=== PATIENT | male | born 1970 | race Caucasian/White ===

== ENCOUNTER 2023-02-11 10:35 | Inpatient (IN) | payer OTHER, MEDICAID ==
[~2023-02-11] VITALS: Ht 182.9 cm; Wt 89.8 kg
[2023-02-11] VITALS (9 sets, daily range): BP systolic 95–120; PULSE 71–95; RESP 18–20; TEMP 97.7–99.9; O2SAT 94–97
[2023-02-11] MEDS ORDERED: MEROPENEM 1 GM IVPB PREMIX 50 ML IV ONE (10:45)
[2023-02-11] MEDS ORDERED: NACL 0.9% 1,500 ML IV ONE (10:45)
[2023-02-11] MEDS ORDERED: VANCOMYCIN HCL 1,000 MG in NS 250 ML IV ONE (10:45)
[2023-02-11 11:22] LABS: BASOPHILS % (AUTO) 0.2 % (0.0-2.0); EOSINOPHILS % (AUTO) 0.1 % (0.0-4.0); HEMATOCRIT 32.3 % (36-54); HEMOGLOBIN 10.5 g/dL (14.0-18.0); LYMPHOCYTES # (AUTO) 1.3 K/uL (1.0-5.5); LYMPHOCYTES % (AUTO) 8.4 % (20.5-51.5); MEAN CORPUSCULAR HEMOGLOBIN 25 pg (27-31); MEAN CORPUSCULAR HGB CONC 33 % (32-36); MEAN CORPUSCULAR VOLUME 78 fL (79.0-98.0); MONOCYTES # (AUTO) 1.4 K/uL (0.0-1.0); MONOCYTES % (AUTO) 8.6 % (1.7-9.3); NEUTROPHILS # (AUTO) 13.2 K/uL (1.8-7.7); NEUTROPHILS % (AUTO) 82.7 % (40.0-70.0); PLATELET COUNT (AUTO) 399 K/uL (130-430); RED BLOOD CELL COUNT(AUTO) 4.16 MIL/uL (4.2-6.2); RED CELL DISTRIBUTION WIDTH 20.4 % (9.0-15.0)
[2023-02-11] MEDS ORDERED: VANCOMYCIN HCL 1000 MG/VIAL IV ONE (11:26)
[2023-02-11] MEDS ORDERED: VALP250S3 GT (11:28)
[2023-02-11] MEDS ORDERED: TYLL650 GT ×2 (11:28)
[2023-02-11] MEDS ORDERED: GABA-533 GT (11:28)
[2023-02-11] MEDS ORDERED: BISACODYL PR (11:28)
[2023-02-11] MEDS ORDERED: TRAM50TA2 GT (11:28)
[2023-02-11] MEDS ORDERED: ATROVENT INH ×2 (11:28)
[2023-02-11] MEDS ORDERED: CHLO473M5 PO (11:28)
[2023-02-11] MEDS ORDERED: LOPE2CAP GT (11:28)
[2023-02-11] MEDS ORDERED: [UNRECOGNIZED DRUG - OTHER] GT (11:28)
[2023-02-11] MEDS ORDERED: BACL20TA GT (11:28)
[2023-02-11] MEDS ORDERED: TEMA15CA5 GT (11:28)
[2023-02-11] MEDS ORDERED: ONDA-8 GT (11:28)
[2023-02-11] MEDS ORDERED: LEVA1.2527 NEB (11:28)
[2023-02-11] MEDS ORDERED: LORA-258 GT (11:28)
[2023-02-11] MEDS ORDERED: MAGN400T10 GT (11:28)
[2023-02-11] MEDS ORDERED: MULT9LIQ9 GT (11:28)
[2023-02-11] MEDS ORDERED: RIVA20TA GT (11:28)
[2023-02-11] MEDS ORDERED: GLUCOSE GT (11:28)
[2023-02-11] MEDS ORDERED: AMIN30LI31 GT (11:28)
[2023-02-11] MEDS ORDERED: FAMO40TA7 GT (11:28)
[2023-02-11] MEDS ORDERED: CRAN450T9 GT (11:28)
[2023-02-11] MEDS ORDERED: GABA-529 GT (11:28)
[2023-02-11] MEDS ORDERED: MIDO10TA GT (11:28)
[2023-02-11] MEDS ORDERED: LACT1TAB21 GT (11:28)
[2023-02-11] MEDS ORDERED: LEVA1.2527 INH (11:28)
[2023-02-11] MEDS ORDERED: MODA100T31 GT (11:28)
[2023-02-11 11:35] LABS: ANION GAP 10 (5-15); CALCIUM 8.1 mg/dL (8.4-11.0); CHLORIDE 99 mmol/L (98-107); CREATININE 0.88 mg/dL (0.55-1.30); GFR AFRICAN AMERICAN 117 mL/min (>90); GLUCOSE 117 mg/dL (70-99); UREA NITROGEN, BLOOD 14 mg/dL (8-21)
[2023-02-11 11:42] LABS: ALANINE AMINOTRANSFERASE 16 U/L (12-78); ALBUMIN 2.3 g/dL (3.4-4.8); ASPARTATE AMINOTRANSFERASE 13 U/L (10-37); TOTAL BILIRUBIN 0.3 mg/dL (0.0-1.0)
[2023-02-11 12:38] LABS: BILIRUBIN,URINE NEGATIVE (NEGATIVE); BLOOD, URINE 3+ (NEGATIVE); CLARITY/URINE SL CLOUDY (CLEAR); COLOR,URINE YELLOW (YELLOW); GLUCOSE,URINE NEGATIVE (NEGATIVE); KETONES,URINE NEGATIVE (NEGATIVE); LEUKOCYTE ESTERASE ,URINE 3+ (NEGATIVE); NITRITE, URINE POSITIVE (NEGATIVE); PROTEIN URINE 2+ (NEGATIVE); UROBILINOGEN,URINE 0.2 (0.2-1.0)
[2023-02-11 12:47] LABS: BACTERIA,URINE FEW /HPF (None Seen); RBC,URINE 20-50 /HPF (0-3)
[2023-02-11 12:48] LABS: WBC,URINE 50-80 /HPF (0-3)
[2023-02-11] MEDS ORDERED: MODAFINIL 100 MG TABLET (PROVIGIL) GT PRN (16:15)
[2023-02-11] MEDS ORDERED: ONDANSETRON 4 MG ODT TAB GT PRN (16:15)
[2023-02-11] MEDS ORDERED: LORazepam 1 MG TABLET GT PRN (16:15)
[2023-02-11] MEDS ORDERED: LOPERAMIDE HCL 2 MG CAPSULE GT PRN (16:15)
[2023-02-11] MEDS ORDERED: GLUCOSE GT PRN (16:15)
[2023-02-11] MEDS ORDERED: LORazepam 2 MG/ML VIAL IVP PRN (17:00)
[2023-02-11] MEDS ORDERED: BISACODYL 10 MG/SUPPOSITORY RC PRN (17:30)
[2023-02-11] MEDS ORDERED: levalbuterol HCL 0.63 MG/3 ML VIAL.NEB INH PRN (17:30)
[2023-02-11] MEDS ORDERED: IPRATROPIUM BROM 0.5 MG/2.5 ML VIAL.NEB (ATROVENT) INH PRN (17:30)
[2023-02-11] MEDS ORDERED: LEVALBUTEROL HCL 1.25 MG INH SCH (18:00)
[2023-02-11] MEDS ORDERED: IPRATROPIUM INH SCH (18:00)
[2023-02-11] MEDS: NACL 0.9% 1,000 ML IV SCH (18:06)
[2023-02-11] MEDS: IPRATROPIUM BROM 0.5 MG/2.5 ML VIAL.NEB (ATROVENT) INH SCH (19:56)
[2023-02-11] MEDS: levalbuterol HCL 0.63 MG/3 ML VIAL.NEB INH SCH (19:57)
[2023-02-11] MEDS: TEMAZEPAM 15 MG CAPSULE GT SCH (21:00)
[2023-02-11] MEDS: BACLOFEN 10 MG TABLET GT SCH (21:16)
[2023-02-11] MEDS: GABAPENTIN 300 MG CAPSULE GT SCH (21:16)
[2023-02-11] MEDS: MIDODRINE HCL 5 MG TABLET (PROAMATINE) GT SCH (21:17)
[2023-02-11] MEDS: VALPROIC ACID ORAL SYRUP 250 MG/5 ML UDC GT SCH (21:17)
[2023-02-11] MEDS: CHLORHEXIDINE GLUC 0.12% 15 ML MOUTHWASH UDC MM SCH (21:17)
[2023-02-11] MEDS: levETIRAcetam 500 MG IV PREMIX 100 ML IV SCH (22:30)
[2023-02-11] MEDS: MEROPENEM 1 GM in NS 100 ML IV SCH (22:30)
[2023-02-12] VITALS (17 sets, daily range): BP systolic 84–97; PULSE 52–105; RESP 12–16; TEMP 97–99.4; O2SAT 95–100
[2023-02-12 05:18] LABS: BASOPHILS % (AUTO) 0.3 % (0.0-2.0); EOSINOPHILS # (AUTO) 0.1 K/uL (0.0-0.4); EOSINOPHILS % (AUTO) 0.8 % (0.0-4.0); LYMPHOCYTES # (AUTO) 1.2 K/uL (1.0-5.5); LYMPHOCYTES % (AUTO) 10.4 % (20.5-51.5); MEAN CORPUSCULAR HEMOGLOBIN 25 pg (27-31); MEAN CORPUSCULAR HGB CONC 32 % (32-36); MEAN CORPUSCULAR VOLUME 78 fL (79.0-98.0); MONOCYTES # (AUTO) 1.5 K/uL (0.0-1.0); NEUTROPHILS # (AUTO) 8.5 K/uL (1.8-7.7); NEUTROPHILS % (AUTO) 75.5 % (40.0-70.0); PLATELET COUNT (AUTO) 330 K/uL (130-430); RED BLOOD CELL COUNT(AUTO) 3.59 MIL/uL (4.2-6.2); RED CELL DISTRIBUTION WIDTH 20.3 % (9.0-15.0); WHITE BLOOD COUNT (AUTO) 11.2 K/uL (4.8-10.8)
[2023-02-12 05:40] LABS: CALCIUM 7.7 mg/dL (8.4-11.0); CREATININE 0.74 mg/dL (0.55-1.30); TOTAL BILIRUBIN 0.3 mg/dL (0.0-1.0)
[2023-02-12] MEDS: MEROPENEM 1 GM in NS 100 ML IV SCH (06:19)
[2023-02-12] MEDS: MIDODRINE HCL 5 MG TABLET (PROAMATINE) GT SCH ×3 (06:19→21:37)
[2023-02-12] MEDS: NACL 0.9% 1,000 ML IV SCH (06:21)
[2023-02-12] MEDS: IPRATROPIUM BROM 0.5 MG/2.5 ML VIAL.NEB (ATROVENT) INH SCH ×3 (07:44→19:32)
[2023-02-12] MEDS: levalbuterol HCL 0.63 MG/3 ML VIAL.NEB INH SCH ×3 (07:45→19:32)
[2023-02-12] MEDS ORDERED: NON-FORMULARY MEDICATION (Amino Acids/Protein Hydrolys (Pro-Stat Max Liquid Packet) 30 ML) GT SCH (09:00)
[2023-02-12] MEDS ORDERED: NON-FORMULARY MEDICATION (Cranberry Fruit (Cranberry) 1 TAB) GT SCH (09:00)
[2023-02-12] MEDS: levETIRAcetam 500 MG IV PREMIX 100 ML IV SCH ×2 (09:34→21:57)
[2023-02-12] MEDS: CHLORHEXIDINE GLUC 0.12% 15 ML MOUTHWASH UDC MM SCH ×2 (09:37→21:35)
[2023-02-12] MEDS: VALPROIC ACID ORAL SYRUP 250 MG/5 ML UDC GT SCH ×2 (09:37→21:35)
[2023-02-12] MEDS: RIVAROXABAN 10 MG TABLET GT SCH (09:38)
[2023-02-12] MEDS: MAGNESIUM OXIDE 400 MG TABLET GT SCH (09:38)
[2023-02-12] MEDS: FAMOTIDINE 20 MG TABLET GT SCH (09:38)
[2023-02-12] MEDS: BACLOFEN 10 MG TABLET GT SCH ×2 (09:38→21:36)
[2023-02-12] MEDS: ASCORBIC ACID 500 MG TABLET GT SCH (09:39)
[2023-02-12] MEDS: GABAPENTIN 300 MG CAPSULE GT SCH ×3 (09:39→21:36)
[2023-02-12] MEDS: traMADol HCL HCL 50 MG TABLET (ULTRAM) GT PRN (09:39)
[2023-02-12] MEDS: LACTOBACILLUS RHAMNOSUS GG 1 CAP CAPSULE GT SCH (09:39)
[2023-02-12] MEDS: MULTIVITS,CA,MINERALS/IRON/FA 1 TABLET GT SCH (09:39)
[2023-02-12] MEDS: ACETAMINOPHEN 650 MG/20.3 ML UDC GT PRN (14:56)
[2023-02-12] MEDS: metroNIDAZOLE 250 mg/NS 50 ML IV SCH ×2 (15:11→22:48)
[2023-02-12] MEDS: cefTRIAXone 1 GM IVPB PREMIX 50 ML IV SCH (15:11)
[2023-02-12] MEDS ORDERED: POTASSIUM CHLORIDE 20 MEQ TAB.PRT.SR PO ONE (17:30)
[2023-02-12] MEDS ORDERED: CEFEPIME 2 GM in D5W 100 ML IV SCH (18:00)
[2023-02-12] MEDS ORDERED: NACL 0.9% 1,000 ML IV ONE (19:00)
[2023-02-12] MEDS: KCL 20 mEq in NS 1000 mL 1,000 ML IV SCH (20:53)
[2023-02-12] MEDS: TEMAZEPAM 15 MG CAPSULE GT SCH (21:00)
[2023-02-13] VITALS (36 sets, daily range): BP systolic 81–127; PULSE 42–78; RESP 12–23; TEMP 98.2–100.2; O2SAT 94–100
[2023-02-13] MEDS ORDERED: ALBUMIN HUMAN 25% 100 ML IV ONE ×2 (00:15→00:37)
[2023-02-13] MEDS: IPRATROPIUM BROM 0.5 MG/2.5 ML VIAL.NEB (ATROVENT) INH SCH ×4 (01:10→19:29)
[2023-02-13] MEDS: levalbuterol HCL 0.63 MG/3 ML VIAL.NEB INH SCH ×4 (01:10→19:29)
[2023-02-13 05:22] LABS: BASOPHILS % (AUTO) 0.5 % (0.0-2.0); EOSINOPHILS # (AUTO) 0.3 K/uL (0.0-0.4); EOSINOPHILS % (AUTO) 3.2 % (0.0-4.0); HEMATOCRIT 27.6 % (36-54); HEMOGLOBIN 8.9 g/dL (14.0-18.0); LYMPHOCYTES # (AUTO) 1.3 K/uL (1.0-5.5); LYMPHOCYTES % (AUTO) 14.4 % (20.5-51.5); MEAN CORPUSCULAR HEMOGLOBIN 25 pg (27-31); MEAN CORPUSCULAR HGB CONC 32 % (32-36); MEAN CORPUSCULAR VOLUME 78 fL (79.0-98.0); MONOCYTES # (AUTO) 0.8 K/uL (0.0-1.0); MONOCYTES % (AUTO) 8.6 % (1.7-9.3); NEUTROPHILS # (AUTO) 6.8 K/uL (1.8-7.7); NEUTROPHILS % (AUTO) 73.3 % (40.0-70.0); PLATELET COUNT (AUTO) 365 K/uL (130-430); RED BLOOD CELL COUNT(AUTO) 3.52 MIL/uL (4.2-6.2); RED CELL DISTRIBUTION WIDTH 20.3 % (9.0-15.0); WHITE BLOOD COUNT (AUTO) 9.3 K/uL (4.8-10.8)
[2023-02-13 05:41] LABS: ALBUMIN 2.3 g/dL (3.4-4.8); CALCIUM 7.8 mg/dL (8.4-11.0); CREATININE 0.66 mg/dL (0.55-1.30); TOTAL BILIRUBIN 0.2 mg/dL (0.0-1.0)
[2023-02-13 06:07] LABS: INR 1.2 (0.80-1.20)
[2023-02-13] MEDS: MIDODRINE HCL 5 MG TABLET (PROAMATINE) GT SCH ×3 (06:51→21:06)
[2023-02-13] MEDS: metroNIDAZOLE 250 mg/NS 50 ML IV SCH ×3 (06:51→22:52)
[2023-02-13] MEDS: KCL 20 mEq in NS 1000 mL 1,000 ML IV SCH (06:52)
[2023-02-13] MEDS: ALBUMIN HUMAN 25% 50 ML IV SCH ×3 (08:31→20:32)
[2023-02-13] MEDS: BACLOFEN 10 MG TABLET GT SCH ×2 (08:31→21:06)
[2023-02-13] MEDS: LACTOBACILLUS RHAMNOSUS GG 1 CAP CAPSULE GT SCH (08:32)
[2023-02-13] MEDS: GABAPENTIN 300 MG CAPSULE GT SCH ×3 (08:32→21:06)
[2023-02-13] MEDS: VALPROIC ACID ORAL SYRUP 250 MG/5 ML UDC GT SCH ×2 (08:32→21:06)
[2023-02-13] MEDS: FAMOTIDINE 20 MG TABLET GT SCH (08:32)
[2023-02-13] MEDS: ASCORBIC ACID 500 MG TABLET GT SCH (08:32)
[2023-02-13] MEDS: CHLORHEXIDINE GLUC 0.12% 15 ML MOUTHWASH UDC MM SCH ×2 (08:32→21:06)
[2023-02-13] MEDS: MULTIVITS,CA,MINERALS/IRON/FA 1 TABLET GT SCH (08:33)
[2023-02-13] MEDS: MAGNESIUM OXIDE 400 MG TABLET GT SCH (08:33)
[2023-02-13] MEDS: levETIRAcetam 500 MG IV PREMIX 100 ML IV SCH ×2 (08:36→21:39)
[2023-02-13] MEDS ORDERED: THEOPHYLLINE ANHYDROUS 200 MG CAP.ER.24H PO SCH (09:00)
[2023-02-13] MEDS: POTASSIUM CHLORIDE 10 MEQ in NACL 0.9% 1,000 ML IV SCH ×2 (09:11→14:46)
[2023-02-13] MEDS: RIVAROXABAN 10 MG TABLET GT SCH (10:18)
[2023-02-13] MEDS ORDERED: THEOPHYLLINE ANHYDROUS 80 MG/15 ML UDC PO ONE (10:30)
[2023-02-13] MEDS: traMADol HCL HCL 50 MG TABLET (ULTRAM) GT PRN ×2 (14:45→21:53)
[2023-02-13] MEDS: cefTRIAXone 1 GM IVPB PREMIX 50 ML IV SCH (15:55)
[2023-02-13] MEDS: ACETAMINOPHEN 650 MG/20.3 ML UDC GT PRN ×2 (15:56→18:36)
[2023-02-13 18:15] LABS: BILIRUBIN,URINE NEGATIVE (NEGATIVE); BLOOD, URINE 3+ (NEGATIVE); CLARITY/URINE SL CLOUDY (CLEAR); COLOR,URINE YELLOW (YELLOW); GLUCOSE,URINE NEGATIVE (NEGATIVE); KETONES,URINE NEGATIVE (NEGATIVE); LEUKOCYTE ESTERASE ,URINE 3+ (NEGATIVE); NITRITE, URINE NEGATIVE (NEGATIVE); PROTEIN URINE NEGATIVE (NEGATIVE); UROBILINOGEN,URINE 0.2 (0.2-1.0)
[2023-02-13 18:20] LABS: BACTERIA,URINE FEW /HPF (None Seen); TRICHOMONAS,URINE None Seen /HPF (None Seen); WBC,URINE 20-50 /HPF (0-3); YEAST,URINE None Seen /HPF (None Seen)
[2023-02-13] MEDS: DOPamine PREMIX 250 ML IV PRN (20:34)
[2023-02-13] MEDS ORDERED: THEOPHYLLINE ANHYDROUS 80 MG/15 ML UDC PO SCH (21:00)
[2023-02-13] MEDS: TEMAZEPAM 15 MG CAPSULE GT SCH (21:00)
[2023-02-14] VITALS (36 sets, daily range): BP systolic 73–124; PULSE 18–96; RESP 14–24; TEMP 98.7–101.3; O2SAT 93–100
[2023-02-14] MEDS: levalbuterol HCL 0.63 MG/3 ML VIAL.NEB INH SCH ×4 (01:30→19:00)
[2023-02-14] MEDS: IPRATROPIUM BROM 0.5 MG/2.5 ML VIAL.NEB (ATROVENT) INH SCH ×6 (01:31→23:02)
[2023-02-14] MEDS: DOPamine PREMIX 250 ML IV PRN ×3 (02:26→18:39)
[2023-02-14] MEDS: POTASSIUM CHLORIDE 10 MEQ in NACL 0.9% 1,000 ML IV SCH ×2 (05:03→17:23)
[2023-02-14] MEDS: MIDODRINE HCL 5 MG TABLET (PROAMATINE) GT SCH ×3 (05:03→21:13)
[2023-02-14] MEDS: traMADol HCL HCL 50 MG TABLET (ULTRAM) GT PRN ×4 (05:03→23:40)
[2023-02-14] MEDS: metroNIDAZOLE 250 mg/NS 50 ML IV SCH ×3 (05:03→21:01)
[2023-02-14 05:06] LABS: BASOPHILS % (AUTO) 0.5 % (0.0-2.0); EOSINOPHILS # (AUTO) 0.4 K/uL (0.0-0.4); HEMATOCRIT 33.6 % (36-54); HEMOGLOBIN 10.9 g/dL (14.0-18.0); LYMPHOCYTES # (AUTO) 1.6 K/uL (1.0-5.5); LYMPHOCYTES % (AUTO) 15.3 % (20.5-51.5); MEAN CORPUSCULAR HEMOGLOBIN 25 pg (27-31); MEAN CORPUSCULAR HGB CONC 32 % (32-36); MEAN CORPUSCULAR VOLUME 78 fL (79.0-98.0); MONOCYTES # (AUTO) 0.9 K/uL (0.0-1.0); NEUTROPHILS # (AUTO) 7.3 K/uL (1.8-7.7); NEUTROPHILS % (AUTO) 71.2 % (40.0-70.0); PLATELET COUNT (AUTO) 447 K/uL (130-430); RED BLOOD CELL COUNT(AUTO) 4.32 MIL/uL (4.2-6.2); RED CELL DISTRIBUTION WIDTH 20.1 % (9.0-15.0); WHITE BLOOD COUNT (AUTO) 10.2 K/uL (4.8-10.8)
[2023-02-14 05:16] LABS: INR 1.2 (0.80-1.20); PROTHROMBIN TIME 11.9 SECS (9.5-12.5)
[2023-02-14 05:33] LABS: CALCIUM 8.1 mg/dL (8.4-11.0); CREATININE 0.64 mg/dL (0.55-1.30)
[2023-02-14 05:45] LABS: ALBUMIN 2.7 g/dL (3.4-4.8); THYROID STIMULATING HORMONE 0.42 uIu/mL (0.34-4.82); TOTAL BILIRUBIN 0.3 mg/dL (0.0-1.0)
[2023-02-14] MEDS: LACTOBACILLUS RHAMNOSUS GG 1 CAP CAPSULE GT SCH (09:39)
[2023-02-14] MEDS: FAMOTIDINE 20 MG TABLET GT SCH (09:39)
[2023-02-14] MEDS: BACLOFEN 10 MG TABLET GT SCH ×2 (09:39→21:14)
[2023-02-14] MEDS: ASCORBIC ACID 500 MG TABLET GT SCH (09:39)
[2023-02-14] MEDS: VALPROIC ACID ORAL SYRUP 250 MG/5 ML UDC GT SCH ×2 (09:40→21:14)
[2023-02-14] MEDS: MAGNESIUM OXIDE 400 MG TABLET GT SCH (09:40)
[2023-02-14] MEDS: GABAPENTIN 300 MG CAPSULE GT SCH ×3 (09:40→21:11)
[2023-02-14] MEDS: CHLORHEXIDINE GLUC 0.12% 15 ML MOUTHWASH UDC MM SCH ×2 (09:41→21:11)
[2023-02-14] MEDS: RIVAROXABAN 10 MG TABLET GT SCH (09:42)
[2023-02-14] MEDS: MULTIVITS,CA,MINERALS/IRON/FA 1 TABLET GT SCH (09:44)
[2023-02-14] MEDS: ACETAMINOPHEN 650 MG/20.3 ML UDC GT PRN ×3 (09:45→23:40)
[2023-02-14] MEDS: levETIRAcetam 500 MG IV PREMIX 100 ML IV SCH ×2 (09:47→21:01)
[2023-02-14] MEDS: THEOPHYLLINE ANHYDROUS 80 MG/15 ML UDC PO SCH ×3 (10:24→21:15)
[2023-02-14] MEDS: ALBUTEROL SULFATE 0.083% 2.5 MG/3 ML VIAL.NEB INH SCH ×3 (15:34→23:02)
[2023-02-14] MEDS: ACETYLCYSTEINE 20% 4 ML VIAL (RT) INH SCH ×3 (15:35→23:02)
[2023-02-14] MEDS ORDERED: AMIKACIN SULFATE 1,000 MG in D5W 100 ML IV SCH (18:00)
[2023-02-14] MEDS: TEMAZEPAM 15 MG CAPSULE GT SCH (21:11)
[2023-02-15] VITALS (33 sets, daily range): BP systolic 89–159; PULSE 48–101; RESP 14–30; TEMP 96.9–98.3; O2SAT 91–97
[2023-02-15] MEDS: levalbuterol HCL 0.63 MG/3 ML VIAL.NEB INH SCH ×5 (01:00→19:00)
[2023-02-15] MEDS: DOPamine PREMIX 250 ML IV PRN ×3 (02:02→13:32)
[2023-02-15] MEDS: IPRATROPIUM BROM 0.5 MG/2.5 ML VIAL.NEB (ATROVENT) INH SCH ×6 (03:16→23:05)
[2023-02-15] MEDS: ALBUTEROL SULFATE 0.083% 2.5 MG/3 ML VIAL.NEB INH SCH ×6 (03:16→23:05)
[2023-02-15] MEDS: ACETYLCYSTEINE 20% 4 ML VIAL (RT) INH SCH ×7 (03:16→23:05)
[2023-02-15] MEDS: MIDODRINE HCL 5 MG TABLET (PROAMATINE) GT SCH ×3 (04:30→22:33)
[2023-02-15] MEDS: metroNIDAZOLE 250 mg/NS 50 ML IV SCH (04:31)
[2023-02-15 06:08] LABS: BASOPHILS # (AUTO) 0.1 K/uL (0.0-0.2); BASOPHILS % (AUTO) 0.6 % (0.0-2.0); EOSINOPHILS # (AUTO) 0.7 K/uL (0.0-0.4); EOSINOPHILS % (AUTO) 7.2 % (0.0-4.0); HEMATOCRIT 31.4 % (36-54); HEMOGLOBIN 10.1 g/dL (14.0-18.0); LYMPHOCYTES # (AUTO) 1.2 K/uL (1.0-5.5); LYMPHOCYTES % (AUTO) 12.4 % (20.5-51.5); MEAN CORPUSCULAR HEMOGLOBIN 25 pg (27-31); MEAN CORPUSCULAR HGB CONC 32 % (32-36); MEAN CORPUSCULAR VOLUME 78 fL (79.0-98.0); MONOCYTES # (AUTO) 0.8 K/uL (0.0-1.0); NEUTROPHILS # (AUTO) 6.8 K/uL (1.8-7.7); NEUTROPHILS % (AUTO) 71.8 % (40.0-70.0); PLATELET COUNT (AUTO) 422 K/uL (130-430); RED BLOOD CELL COUNT(AUTO) 4.03 MIL/uL (4.2-6.2); RED CELL DISTRIBUTION WIDTH 20.2 % (9.0-15.0); WHITE BLOOD COUNT (AUTO) 9.5 K/uL (4.8-10.8)
[2023-02-15 06:19] LABS: ALBUMIN 2.5 g/dL (3.4-4.8); CALCIUM 8.2 mg/dL (8.4-11.0); CREATININE 0.6 mg/dL (0.55-1.30); TOTAL BILIRUBIN 0.5 mg/dL (0.0-1.0)
[2023-02-15] MEDS: traMADol HCL HCL 50 MG TABLET (ULTRAM) GT PRN ×2 (06:57→20:11)
[2023-02-15] MEDS: levETIRAcetam 500 MG IV PREMIX 100 ML IV SCH ×2 (09:30→21:50)
[2023-02-15] MEDS: CHLORHEXIDINE GLUC 0.12% 15 ML MOUTHWASH UDC MM SCH ×2 (09:30→21:51)
[2023-02-15] MEDS: MAGNESIUM OXIDE 400 MG TABLET GT SCH (09:31)
[2023-02-15] MEDS: RIVAROXABAN 10 MG TABLET GT SCH (09:31)
[2023-02-15] MEDS: LACTOBACILLUS RHAMNOSUS GG 1 CAP CAPSULE GT SCH (09:35)
[2023-02-15] MEDS: VALPROIC ACID ORAL SYRUP 250 MG/5 ML UDC GT SCH ×2 (09:35→21:50)
[2023-02-15] MEDS: BACLOFEN 10 MG TABLET GT SCH ×2 (09:35→21:49)
[2023-02-15] MEDS: GABAPENTIN 300 MG CAPSULE GT SCH ×3 (09:36→21:50)
[2023-02-15] MEDS: ASCORBIC ACID 500 MG TABLET GT SCH (09:36)
[2023-02-15] MEDS: FAMOTIDINE 20 MG TABLET GT SCH ×2 (09:40→11:45)
[2023-02-15] MEDS: MULTIVITS,CA,MINERALS/IRON/FA 1 TABLET GT SCH (09:42)
[2023-02-15] MEDS: POTASSIUM CHLORIDE 10 MEQ in NACL 0.9% 1,000 ML IV SCH ×2 (10:12→11:09)
[2023-02-15] MEDS: THEOPHYLLINE ANHYDROUS 80 MG/15 ML UDC PO SCH ×3 (11:47→21:51)
[2023-02-15] MEDS: CEFIDEROCOL SULFATE TOSYLATE 1 GM in NS 100 ML IV SCH ×2 (14:16→22:33)
[2023-02-15] MEDS: TEMAZEPAM 15 MG CAPSULE GT SCH (21:50)
[2023-02-16] VITALS (29 sets, daily range): BP systolic 91–139; PULSE 56–88; RESP 12–33; TEMP 97.3–98.3; O2SAT 88–100
[2023-02-16] MEDS: levalbuterol HCL 0.63 MG/3 ML VIAL.NEB INH SCH ×3 (01:00→13:00)
[2023-02-16] MEDS: IPRATROPIUM BROM 0.5 MG/2.5 ML VIAL.NEB (ATROVENT) INH SCH ×6 (02:45→22:33)
[2023-02-16] MEDS: ALBUTEROL SULFATE 0.083% 2.5 MG/3 ML VIAL.NEB INH SCH ×6 (02:45→22:33)
[2023-02-16] MEDS: ACETYLCYSTEINE 20% 4 ML VIAL (RT) INH SCH ×6 (02:46→22:33)
[2023-02-16 05:35] LABS: BASOPHILS % (AUTO) 0.4 % (0.0-2.0); EOSINOPHILS # (AUTO) 0.9 K/uL (0.0-0.4); EOSINOPHILS % (AUTO) 7.9 % (0.0-4.0); HEMATOCRIT 29.6 % (36-54); HEMOGLOBIN 9.2 g/dL (14.0-18.0); LYMPHOCYTES # (AUTO) 1.6 K/uL (1.0-5.5); LYMPHOCYTES % (AUTO) 13.4 % (20.5-51.5); MEAN CORPUSCULAR HEMOGLOBIN 24 pg (27-31); MEAN CORPUSCULAR HGB CONC 31 % (32-36); MEAN CORPUSCULAR VOLUME 78 fL (79.0-98.0); MONOCYTES # (AUTO) 0.6 K/uL (0.0-1.0); MONOCYTES % (AUTO) 4.9 % (1.7-9.3); NEUTROPHILS # (AUTO) 8.6 K/uL (1.8-7.7); NEUTROPHILS % (AUTO) 73.4 % (40.0-70.0); PLATELET COUNT (AUTO) 420 K/uL (130-430); RED BLOOD CELL COUNT(AUTO) 3.81 MIL/uL (4.2-6.2); RED CELL DISTRIBUTION WIDTH 20.3 % (9.0-15.0); WHITE BLOOD COUNT (AUTO) 11.7 K/uL (4.8-10.8)
[2023-02-16 05:50] LABS: CALCIUM 7.7 mg/dL (8.4-11.0); CREATININE 0.69 mg/dL (0.55-1.30)
[2023-02-16] MEDS: MIDODRINE HCL 5 MG TABLET (PROAMATINE) GT SCH ×3 (06:37→21:30)
[2023-02-16] MEDS: CEFIDEROCOL SULFATE TOSYLATE 1 GM in NS 100 ML IV SCH ×3 (06:38→21:31)
[2023-02-16] MEDS: LACTOBACILLUS RHAMNOSUS GG 1 CAP CAPSULE GT SCH (08:20)
[2023-02-16] MEDS: FAMOTIDINE 20 MG TABLET GT SCH (08:20)
[2023-02-16] MEDS: MULTIVITS,CA,MINERALS/IRON/FA 1 TABLET GT SCH (08:20)
[2023-02-16] MEDS: BACLOFEN 10 MG TABLET GT SCH ×2 (08:20→21:22)
[2023-02-16] MEDS: MAGNESIUM OXIDE 400 MG TABLET GT SCH (08:21)
[2023-02-16] MEDS: GABAPENTIN 300 MG CAPSULE GT SCH ×3 (08:21→21:23)
[2023-02-16] MEDS: ASCORBIC ACID 500 MG TABLET GT SCH (08:21)
[2023-02-16] MEDS: CHLORHEXIDINE GLUC 0.12% 15 ML MOUTHWASH UDC MM SCH ×2 (08:23→21:23)
[2023-02-16] MEDS: VALPROIC ACID ORAL SYRUP 250 MG/5 ML UDC GT SCH ×2 (08:24→21:22)
[2023-02-16] MEDS: levETIRAcetam 500 MG IV PREMIX 100 ML IV SCH ×2 (08:24→21:23)
[2023-02-16] MEDS: RIVAROXABAN 10 MG TABLET GT SCH (08:26)
[2023-02-16] MEDS: THEOPHYLLINE ANHYDROUS 80 MG/15 ML UDC PO SCH ×3 (08:36→21:24)
[2023-02-16] MEDS: POTASSIUM CHLORIDE 10 MEQ in NACL 0.9% 1,000 ML IV SCH ×2 (08:41→21:22)
[2023-02-16] MEDS: DOPamine PREMIX 250 ML IV PRN (09:40)
[2023-02-16] MEDS: TEMAZEPAM 15 MG CAPSULE GT SCH (21:23)
[2023-02-17] VITALS (34 sets, daily range): BP systolic 100–142; PULSE 46–89; RESP 13–36; TEMP 96.6–98.1; O2SAT 18–100
[2023-02-17] MEDS: ACETYLCYSTEINE 20% 4 ML VIAL (RT) INH SCH ×6 (03:52→23:17)
[2023-02-17] MEDS: ALBUTEROL SULFATE 0.083% 2.5 MG/3 ML VIAL.NEB INH SCH ×6 (03:52→23:16)
[2023-02-17] MEDS: IPRATROPIUM BROM 0.5 MG/2.5 ML VIAL.NEB (ATROVENT) INH SCH ×6 (03:52→23:17)
[2023-02-17] MEDS: MIDODRINE HCL 5 MG TABLET (PROAMATINE) GT SCH ×3 (05:57→21:52)
[2023-02-17] MEDS: POTASSIUM CHLORIDE 10 MEQ in NACL 0.9% 1,000 ML IV SCH ×2 (05:57→15:30)
[2023-02-17] MEDS: CEFIDEROCOL SULFATE TOSYLATE 1 GM in NS 100 ML IV SCH ×3 (05:58→21:52)
[2023-02-17] MEDS: levalbuterol HCL 0.63 MG/3 ML VIAL.NEB INH SCH ×3 (07:00→20:12)
[2023-02-17] MEDS: DOPamine PREMIX 250 ML IV PRN (08:14)
[2023-02-17] MEDS: CHLORHEXIDINE GLUC 0.12% 15 ML MOUTHWASH UDC MM SCH ×2 (09:28→21:51)
[2023-02-17] MEDS ORDERED: LIDOCAINE 2% JELLY UROJECT 10 ML MM ONE (09:29)
[2023-02-17] MEDS ORDERED: LIDOCAINE 2%, 20 ML MDV ONE (09:29)
[2023-02-17] MEDS: levETIRAcetam 500 MG IV PREMIX 100 ML IV SCH ×2 (09:29→21:51)
[2023-02-17] MEDS ORDERED: BENZOCAINE 20% 0.5mL UD SPRAY MM ONE (09:29)
[2023-02-17] MEDS ORDERED: LIDOCAINE MPF 2% 20 MG/1 ML, 5 ML VIAL INH ONE ×2 (09:30→10:36)
[2023-02-17] MEDS ORDERED: fentaNYL CITRATE/PF 100 MCG/2 ML AMP ONE (09:30)
[2023-02-17] MEDS ORDERED: MIDAZOLAM HCL 5 MG/5 ML VIAL ONE (09:30)
[2023-02-17] MEDS: MULTIVITS,CA,MINERALS/IRON/FA 1 TABLET GT SCH (11:00)
[2023-02-17] MEDS: GABAPENTIN 300 MG CAPSULE GT SCH ×3 (11:00→21:51)
[2023-02-17] MEDS: MAGNESIUM OXIDE 400 MG TABLET GT SCH (11:00)
[2023-02-17] MEDS: LACTOBACILLUS RHAMNOSUS GG 1 CAP CAPSULE GT SCH (11:00)
[2023-02-17] MEDS: ASCORBIC ACID 500 MG TABLET GT SCH (11:00)
[2023-02-17] MEDS: BACLOFEN 10 MG TABLET GT SCH ×2 (11:00→21:50)
[2023-02-17] MEDS: RIVAROXABAN 10 MG TABLET GT SCH (11:01)
[2023-02-17] MEDS: THEOPHYLLINE ANHYDROUS 80 MG/15 ML UDC PO SCH ×3 (11:02→21:51)
[2023-02-17] MEDS: VALPROIC ACID ORAL SYRUP 250 MG/5 ML UDC GT SCH ×2 (11:02→21:50)
[2023-02-17] MEDS: FAMOTIDINE 20 MG TABLET GT SCH (13:52)
[2023-02-17] MEDS: TEMAZEPAM 15 MG CAPSULE GT SCH (21:51)
[2023-02-18] VITALS (33 sets, daily range): BP systolic 110–156; PULSE 50–139; RESP 13–59; TEMP 97.6–99.8; O2SAT 95–100
[2023-02-18] MEDS: levalbuterol HCL 0.63 MG/3 ML VIAL.NEB INH SCH ×3 (01:00→13:00)
[2023-02-18] MEDS: IPRATROPIUM BROM 0.5 MG/2.5 ML VIAL.NEB (ATROVENT) INH SCH ×6 (03:47→23:19)
[2023-02-18] MEDS: ALBUTEROL SULFATE 0.083% 2.5 MG/3 ML VIAL.NEB INH SCH ×6 (03:47→23:19)
[2023-02-18] MEDS: ACETYLCYSTEINE 20% 4 ML VIAL (RT) INH SCH ×6 (03:48→23:20)
[2023-02-18] MEDS ORDERED: ATROPINE SULFATE 1 MG/10 ML SYRINGE IVP ONE ×2 (05:45→05:46)
[2023-02-18] MEDS: POTASSIUM CHLORIDE 10 MEQ in NACL 0.9% 1,000 ML IV SCH ×3 (06:22→22:18)
[2023-02-18] MEDS: CEFIDEROCOL SULFATE TOSYLATE 1 GM in NS 100 ML IV SCH ×3 (06:23→22:17)
[2023-02-18] MEDS: MIDODRINE HCL 5 MG TABLET (PROAMATINE) GT SCH ×3 (06:24→21:09)
[2023-02-18 06:30] LABS: BASOPHILS % (AUTO) 0.3 % (0.0-2.0); EOSINOPHILS # (AUTO) 0.9 K/uL (0.0-0.4); EOSINOPHILS % (AUTO) 8.1 % (0.0-4.0); HEMATOCRIT 37.6 % (36-54); HEMOGLOBIN 12.2 g/dL (14.0-18.0); LYMPHOCYTES # (AUTO) 1.5 K/uL (1.0-5.5); MEAN CORPUSCULAR HEMOGLOBIN 25 pg (27-31); MEAN CORPUSCULAR HGB CONC 32 % (32-36); MEAN CORPUSCULAR VOLUME 78 fL (79.0-98.0); MONOCYTES # (AUTO) 0.6 K/uL (0.0-1.0); MONOCYTES % (AUTO) 5.3 % (1.7-9.3); NEUTROPHILS # (AUTO) 7.6 K/uL (1.8-7.7); NEUTROPHILS % (AUTO) 72.3 % (40.0-70.0); PLATELET COUNT (AUTO) 427 K/uL (130-430); RED BLOOD CELL COUNT(AUTO) 4.82 MIL/uL (4.2-6.2); RED CELL DISTRIBUTION WIDTH 20.5 % (9.0-15.0); WHITE BLOOD COUNT (AUTO) 10.6 K/uL (4.8-10.8)
[2023-02-18 06:53] LABS: CALCIUM 8.4 mg/dL (8.4-11.0); CREATININE 0.6 mg/dL (0.55-1.30)
[2023-02-18] MEDS: DOPamine PREMIX 250 ML IV PRN ×4 (08:30→21:38)
[2023-02-18] MEDS: levETIRAcetam 500 MG IV PREMIX 100 ML IV SCH ×2 (08:33→21:08)
[2023-02-18] MEDS: BACLOFEN 10 MG TABLET GT SCH ×2 (08:37→21:07)
[2023-02-18] MEDS: LACTOBACILLUS RHAMNOSUS GG 1 CAP CAPSULE GT SCH (08:38)
[2023-02-18] MEDS: VALPROIC ACID ORAL SYRUP 250 MG/5 ML UDC GT SCH ×2 (08:38→21:07)
[2023-02-18] MEDS: MAGNESIUM OXIDE 400 MG TABLET GT SCH (08:39)
[2023-02-18] MEDS: GABAPENTIN 300 MG CAPSULE GT SCH ×3 (08:39→21:07)
[2023-02-18] MEDS: RIVAROXABAN 10 MG TABLET GT SCH (08:40)
[2023-02-18] MEDS: CHLORHEXIDINE GLUC 0.12% 15 ML MOUTHWASH UDC MM SCH ×2 (08:42→21:08)
[2023-02-18] MEDS: THEOPHYLLINE ANHYDROUS 80 MG/15 ML UDC PO SCH ×3 (08:43→21:09)
[2023-02-18] MEDS: ASCORBIC ACID 500 MG TABLET GT SCH (08:43)
[2023-02-18] MEDS: MULTIVITS,CA,MINERALS/IRON/FA 1 TABLET GT SCH (08:43)
[2023-02-18] MEDS: FAMOTIDINE 20 MG TABLET GT SCH (09:44)
[2023-02-18] MEDS ORDERED: ATROPINE SULFATE 0.4 MG/ML VIAL IVP ONE (09:45)
[2023-02-18] MEDS: ATROPINE SULFATE 0.4 MG/ML VIAL IVP SCH ×2 (12:52→18:35)
[2023-02-18] MEDS: traMADol HCL HCL 50 MG TABLET (ULTRAM) GT PRN (13:12)
[2023-02-18 17:03] LABS: ALBUMIN 2.2 g/dL (3.4-4.8); CALCIUM 8.3 mg/dL (8.4-11.0); CREATININE 0.65 mg/dL (0.55-1.30); TOTAL BILIRUBIN 0.4 mg/dL (0.0-1.0)
[2023-02-18] MEDS: TEMAZEPAM 15 MG CAPSULE GT SCH (21:08)
[2023-02-19] VITALS (38 sets, daily range): BP systolic 84–177; PULSE 49–132; RESP 12–40; TEMP 97.7–99.6; O2SAT 96–100
[2023-02-19] MEDS: ATROPINE SULFATE 0.4 MG/ML VIAL IVP SCH ×4 (00:50→18:40)
[2023-02-19] MEDS: DOPamine PREMIX 250 ML IV PRN ×4 (02:33→20:08)
[2023-02-19] MEDS: IPRATROPIUM BROM 0.5 MG/2.5 ML VIAL.NEB (ATROVENT) INH SCH ×6 (03:18→23:42)
[2023-02-19] MEDS: ALBUTEROL SULFATE 0.083% 2.5 MG/3 ML VIAL.NEB INH SCH ×6 (03:18→23:41)
[2023-02-19] MEDS: ACETYLCYSTEINE 20% 4 ML VIAL (RT) INH SCH ×6 (03:19→23:42)
[2023-02-19 05:58] LABS: BASOPHILS % (AUTO) 0.5 % (0.0-2.0); EOSINOPHILS # (AUTO) 0.7 K/uL (0.0-0.4); EOSINOPHILS % (AUTO) 7.6 % (0.0-4.0); HEMATOCRIT 28.5 % (36-54); HEMOGLOBIN 9.3 g/dL (14.0-18.0); LYMPHOCYTES # (AUTO) 1.7 K/uL (1.0-5.5); LYMPHOCYTES % (AUTO) 18.1 % (20.5-51.5); MEAN CORPUSCULAR HEMOGLOBIN 25 pg (27-31); MEAN CORPUSCULAR HGB CONC 33 % (32-36); MEAN CORPUSCULAR VOLUME 78 fL (79.0-98.0); MONOCYTES # (AUTO) 0.6 K/uL (0.0-1.0); MONOCYTES % (AUTO) 6.5 % (1.7-9.3); NEUTROPHILS # (AUTO) 6.3 K/uL (1.8-7.7); NEUTROPHILS % (AUTO) 67.3 % (40.0-70.0); PLATELET COUNT (AUTO) 449 K/uL (130-430); RED BLOOD CELL COUNT(AUTO) 3.67 MIL/uL (4.2-6.2); RED CELL DISTRIBUTION WIDTH 20.4 % (9.0-15.0); WHITE BLOOD COUNT (AUTO) 9.4 K/uL (4.8-10.8)
[2023-02-19] MEDS: MIDODRINE HCL 5 MG TABLET (PROAMATINE) GT SCH ×2 (06:22→12:48)
[2023-02-19] MEDS: CEFIDEROCOL SULFATE TOSYLATE 1 GM in NS 100 ML IV SCH ×3 (06:23→22:40)
[2023-02-19 06:44] LABS: CALCIUM 7.8 mg/dL (8.4-11.0); CREATININE 0.6 mg/dL (0.55-1.30); THYROID STIMULATING HORMONE 1.62 uIu/mL (0.34-4.82); TOTAL BILIRUBIN 0.3 mg/dL (0.0-1.0)
[2023-02-19] MEDS: levETIRAcetam 500 MG IV PREMIX 100 ML IV SCH ×2 (09:47→20:17)
[2023-02-19] MEDS: VALPROIC ACID ORAL SYRUP 250 MG/5 ML UDC GT SCH ×2 (09:49→20:16)
[2023-02-19] MEDS: CHLORHEXIDINE GLUC 0.12% 15 ML MOUTHWASH UDC MM SCH ×2 (09:50→20:17)
[2023-02-19] MEDS: MAGNESIUM OXIDE 400 MG TABLET GT SCH (09:51)
[2023-02-19] MEDS: ASCORBIC ACID 500 MG TABLET GT SCH (09:55)
[2023-02-19] MEDS: FLUDROCORTISONE ACETATE 0.1 MG TABLET( FLORINEF) PO SCH (09:58)
[2023-02-19] MEDS: RIVAROXABAN 10 MG TABLET GT SCH (09:58)
[2023-02-19] MEDS: BACLOFEN 10 MG TABLET GT SCH ×2 (10:00→20:15)
[2023-02-19] MEDS: GABAPENTIN 300 MG CAPSULE GT SCH ×3 (10:00→20:16)
[2023-02-19] MEDS: LACTOBACILLUS RHAMNOSUS GG 1 CAP CAPSULE GT SCH (10:00)
[2023-02-19] MEDS: MULTIVITS,CA,MINERALS/IRON/FA 1 TABLET GT SCH (10:00)
[2023-02-19] MEDS: FAMOTIDINE 20 MG TABLET GT SCH (10:00)
[2023-02-19] MEDS: THEOPHYLLINE ANHYDROUS 80 MG/15 ML UDC PO SCH ×3 (10:02→20:17)
[2023-02-19] MEDS: POTASSIUM CHLORIDE 10 MEQ in NACL 0.9% 1,000 ML IV SCH ×2 (10:03→22:40)
[2023-02-19] MEDS: TEMAZEPAM 15 MG CAPSULE GT SCH (20:16)
[2023-02-20] VITALS (34 sets, daily range): BP systolic 76–132; PULSE 58–99; RESP 12–35; TEMP 96.3–98.7; O2SAT 97–100
[2023-02-20] MEDS: DOPamine PREMIX 250 ML IV PRN ×4 (00:02→19:37)
[2023-02-20] MEDS: ATROPINE SULFATE 0.4 MG/ML VIAL IVP SCH ×4 (00:50→18:14)
[2023-02-20] MEDS: IPRATROPIUM BROM 0.5 MG/2.5 ML VIAL.NEB (ATROVENT) INH SCH ×6 (03:23→23:40)
[2023-02-20] MEDS: ACETYLCYSTEINE 20% 4 ML VIAL (RT) INH SCH ×6 (03:23→23:40)
[2023-02-20] MEDS: ALBUTEROL SULFATE 0.083% 2.5 MG/3 ML VIAL.NEB INH SCH ×6 (03:23→23:40)
[2023-02-20 05:31] LABS: BASOPHILS # (AUTO) 0.1 K/uL (0.0-0.2); BASOPHILS % (AUTO) 0.7 % (0.0-2.0); EOSINOPHILS # (AUTO) 0.8 K/uL (0.0-0.4); HEMATOCRIT 31.2 % (36-54); HEMOGLOBIN 10.2 g/dL (14.0-18.0); LYMPHOCYTES # (AUTO) 1.6 K/uL (1.0-5.5); LYMPHOCYTES % (AUTO) 20.1 % (20.5-51.5); MEAN CORPUSCULAR HEMOGLOBIN 25 pg (27-31); MEAN CORPUSCULAR HGB CONC 33 % (32-36); MEAN CORPUSCULAR VOLUME 77 fL (79.0-98.0); MONOCYTES # (AUTO) 0.6 K/uL (0.0-1.0); MONOCYTES % (AUTO) 7.4 % (1.7-9.3); NEUTROPHILS % (AUTO) 61.8 % (40.0-70.0); PLATELET COUNT (AUTO) 426 K/uL (130-430); RED BLOOD CELL COUNT(AUTO) 4.07 MIL/uL (4.2-6.2); WHITE BLOOD COUNT (AUTO) 8.2 K/uL (4.8-10.8)
[2023-02-20 06:00] LABS: ALBUMIN 2.2 g/dL (3.4-4.8); CALCIUM 8.4 mg/dL (8.4-11.0); CREATININE 0.63 mg/dL (0.55-1.30); TOTAL BILIRUBIN 0.3 mg/dL (0.0-1.0)
[2023-02-20] MEDS: CEFIDEROCOL SULFATE TOSYLATE 1 GM in NS 100 ML IV SCH ×3 (06:12→22:09)
[2023-02-20] MEDS: levETIRAcetam 500 MG IV PREMIX 100 ML IV SCH ×2 (08:18→20:29)
[2023-02-20] MEDS: CHLORHEXIDINE GLUC 0.12% 15 ML MOUTHWASH UDC MM SCH ×2 (08:18→20:30)
[2023-02-20] MEDS: VALPROIC ACID ORAL SYRUP 250 MG/5 ML UDC GT SCH ×2 (08:19→20:29)
[2023-02-20] MEDS: RIVAROXABAN 10 MG TABLET GT SCH (08:20)
[2023-02-20] MEDS: THEOPHYLLINE ANHYDROUS 80 MG/15 ML UDC PO SCH ×3 (08:21→20:30)
[2023-02-20] MEDS: ASCORBIC ACID 500 MG TABLET GT SCH (08:22)
[2023-02-20] MEDS: LACTOBACILLUS RHAMNOSUS GG 1 CAP CAPSULE GT SCH (08:22)
[2023-02-20] MEDS: FLUDROCORTISONE ACETATE 0.1 MG TABLET( FLORINEF) PO SCH (08:22)
[2023-02-20] MEDS: MULTIVITS,CA,MINERALS/IRON/FA 1 TABLET GT SCH (08:22)
[2023-02-20] MEDS: MAGNESIUM OXIDE 400 MG TABLET GT SCH (08:23)
[2023-02-20] MEDS: GABAPENTIN 300 MG CAPSULE GT SCH ×3 (08:23→20:29)
[2023-02-20] MEDS: BACLOFEN 10 MG TABLET GT SCH ×2 (08:23→20:29)
[2023-02-20] MEDS: FAMOTIDINE 20 MG TABLET GT SCH (08:23)
[2023-02-20] MEDS: POTASSIUM CHLORIDE 10 MEQ in NACL 0.9% 1,000 ML IV SCH (14:49)
[2023-02-20] MEDS: TEMAZEPAM 15 MG CAPSULE GT SCH (20:29)
[2023-02-20] MEDS: traMADol HCL HCL 50 MG TABLET (ULTRAM) GT PRN (21:14)
[2023-02-21] VITALS (34 sets, daily range): BP systolic 56–132; PULSE 47–89; RESP 13–36; TEMP 97.5–99.1; O2SAT 92–100
[2023-02-21] MEDS: ATROPINE SULFATE 0.4 MG/ML VIAL IVP SCH ×4 (00:56→21:01)
[2023-02-21] MEDS: DOPamine PREMIX 250 ML IV PRN ×4 (02:01→23:17)
[2023-02-21] MEDS: IPRATROPIUM BROM 0.5 MG/2.5 ML VIAL.NEB (ATROVENT) INH SCH ×5 (03:43→19:44)
[2023-02-21] MEDS: ACETYLCYSTEINE 20% 4 ML VIAL (RT) INH SCH ×5 (03:43→19:58)
[2023-02-21] MEDS: ALBUTEROL SULFATE 0.083% 2.5 MG/3 ML VIAL.NEB INH SCH ×5 (03:43→19:40)
[2023-02-21 05:29] LABS: BASOPHILS % (AUTO) 0.5 % (0.0-2.0); EOSINOPHILS # (AUTO) 0.6 K/uL (0.0-0.4); EOSINOPHILS % (AUTO) 8.5 % (0.0-4.0); HEMATOCRIT 28.3 % (36-54); HEMOGLOBIN 9.2 g/dL (14.0-18.0); LYMPHOCYTES # (AUTO) 1.5 K/uL (1.0-5.5); LYMPHOCYTES % (AUTO) 20.7 % (20.5-51.5); MEAN CORPUSCULAR HEMOGLOBIN 25 pg (27-31); MEAN CORPUSCULAR HGB CONC 32 % (32-36); MEAN CORPUSCULAR VOLUME 77 fL (79.0-98.0); MONOCYTES # (AUTO) 0.5 K/uL (0.0-1.0); MONOCYTES % (AUTO) 6.5 % (1.7-9.3); NEUTROPHILS # (AUTO) 4.8 K/uL (1.8-7.7); NEUTROPHILS % (AUTO) 63.8 % (40.0-70.0); PLATELET COUNT (AUTO) 315 K/uL (130-430); RED BLOOD CELL COUNT(AUTO) 3.69 MIL/uL (4.2-6.2); RED CELL DISTRIBUTION WIDTH 20.9 % (9.0-15.0); WHITE BLOOD COUNT (AUTO) 7.5 K/uL (4.8-10.8)
[2023-02-21 05:51] LABS: ALBUMIN 2.1 g/dL (3.4-4.8); CREATININE 0.56 mg/dL (0.55-1.30); TOTAL BILIRUBIN 0.3 mg/dL (0.0-1.0)
[2023-02-21] MEDS: CEFIDEROCOL SULFATE TOSYLATE 1 GM in NS 100 ML IV SCH ×3 (06:07→20:59)
[2023-02-21] MEDS: POTASSIUM CHLORIDE 10 MEQ in NACL 0.9% 1,000 ML IV SCH ×2 (06:08→10:25)
[2023-02-21] MEDS: RIVAROXABAN 10 MG TABLET GT SCH (09:00)
[2023-02-21] MEDS: FAMOTIDINE 20 MG TABLET GT SCH (09:26)
[2023-02-21] MEDS: CHLORHEXIDINE GLUC 0.12% 15 ML MOUTHWASH UDC MM SCH ×2 (09:26→21:00)
[2023-02-21] MEDS: BACLOFEN 10 MG TABLET GT SCH ×2 (09:27→21:02)
[2023-02-21] MEDS: VALPROIC ACID ORAL SYRUP 250 MG/5 ML UDC GT SCH ×2 (09:27→21:01)
[2023-02-21] MEDS: MULTIVITS,CA,MINERALS/IRON/FA 1 TABLET GT SCH (09:27)
[2023-02-21] MEDS: FLUDROCORTISONE ACETATE 0.1 MG TABLET( FLORINEF) PO SCH (09:27)
[2023-02-21] MEDS: ASCORBIC ACID 500 MG TABLET GT SCH (09:28)
[2023-02-21] MEDS: GABAPENTIN 300 MG CAPSULE GT SCH ×3 (09:28→21:02)
[2023-02-21] MEDS: MAGNESIUM OXIDE 400 MG TABLET GT SCH (09:28)
[2023-02-21] MEDS: LACTOBACILLUS RHAMNOSUS GG 1 CAP CAPSULE GT SCH (09:28)
[2023-02-21] MEDS: THEOPHYLLINE ANHYDROUS 80 MG/15 ML UDC PO SCH ×3 (09:29→21:00)
[2023-02-21] MEDS: levETIRAcetam 500 MG IV PREMIX 100 ML IV SCH ×2 (09:29→20:59)
[2023-02-21 11:07] LABS: A/G RATIO 0.5 (0.7-1.7); ALBUMIN 2.6 g/dL (2.9-4.4); ALPHA-1-GLOBULIN 0.4 g/dL (0.0-0.4); ALPHA-2-GLOBULIN 1.1 g/dL (0.4-1.0); GAMMA GLOBULIN 2.5 g/dL (0.4-1.8); M-SPIKE Not Observed g/dL (Not Observed)
[2023-02-21] MEDS: TEMAZEPAM 15 MG CAPSULE GT SCH (21:02)
[2023-02-22] VITALS (34 sets, daily range): BP systolic 88–149; PULSE 54–143; RESP 16–28; TEMP 97.9–98.6; O2SAT 95–100
[2023-02-22] MEDS: ALBUTEROL SULFATE 0.083% 2.5 MG/3 ML VIAL.NEB INH SCH ×6 (00:04→23:03)
[2023-02-22] MEDS: ACETYLCYSTEINE 20% 4 ML VIAL (RT) INH SCH ×6 (00:05→23:05)
[2023-02-22] MEDS: IPRATROPIUM BROM 0.5 MG/2.5 ML VIAL.NEB (ATROVENT) INH SCH ×6 (00:05→23:03)
[2023-02-22] MEDS: POTASSIUM CHLORIDE 10 MEQ in NACL 0.9% 1,000 ML IV SCH (01:00)
[2023-02-22] MEDS: ATROPINE SULFATE 0.4 MG/ML VIAL IVP SCH ×4 (02:10→21:23)
[2023-02-22] MEDS: DOPamine PREMIX 250 ML IV PRN ×3 (05:35→16:30)
[2023-02-22] MEDS: CEFIDEROCOL SULFATE TOSYLATE 1 GM in NS 100 ML IV SCH ×3 (05:36→21:21)
[2023-02-22 07:01] LABS: CALCIUM 8.2 mg/dL (8.4-11.0); CREATININE 0.71 mg/dL (0.55-1.30)
[2023-02-22] MEDS: VALPROIC ACID ORAL SYRUP 250 MG/5 ML UDC GT SCH ×2 (08:27→21:22)
[2023-02-22] MEDS: LACTOBACILLUS RHAMNOSUS GG 1 CAP CAPSULE GT SCH (08:27)
[2023-02-22] MEDS: MAGNESIUM OXIDE 400 MG TABLET GT SCH (08:27)
[2023-02-22] MEDS: FLUDROCORTISONE ACETATE 0.1 MG TABLET( FLORINEF) PO SCH (08:28)
[2023-02-22] MEDS: THEOPHYLLINE ANHYDROUS 80 MG/15 ML UDC PO SCH ×3 (08:28→21:22)
[2023-02-22] MEDS: MULTIVITS,CA,MINERALS/IRON/FA 1 TABLET GT SCH (08:28)
[2023-02-22] MEDS: CHLORHEXIDINE GLUC 0.12% 15 ML MOUTHWASH UDC MM SCH ×2 (08:28→21:22)
[2023-02-22] MEDS: FAMOTIDINE 20 MG TABLET GT SCH (08:28)
[2023-02-22] MEDS: GABAPENTIN 300 MG CAPSULE GT SCH ×3 (08:28→21:22)
[2023-02-22] MEDS: BACLOFEN 10 MG TABLET GT SCH ×2 (08:28→21:22)
[2023-02-22] MEDS: levETIRAcetam 500 MG IV PREMIX 100 ML IV SCH ×2 (08:29→21:21)
[2023-02-22] MEDS: ASCORBIC ACID 500 MG TABLET GT SCH (08:29)
[2023-02-22] MEDS ORDERED: RIVAROXABAN 10 MG TABLET GT SCH (09:00)
[2023-02-22] MEDS: KCL 20 mEq in 100 mL (PREMIX) 100 ML IV SCH ×2 (11:13→14:01)
[2023-02-22] MEDS: TEMAZEPAM 15 MG CAPSULE GT SCH (21:23)
[2023-02-23] VITALS (33 sets, daily range): BP systolic 90–139; PULSE 62–104; RESP 10–16; TEMP 97.2–98.4; O2SAT 94–100
[2023-02-23] MEDS: ATROPINE SULFATE 0.4 MG/ML VIAL IVP SCH ×3 (00:23→13:00)
[2023-02-23] MEDS: ACETAMINOPHEN 650 MG/20.3 ML UDC GT PRN (02:59)
[2023-02-23] MEDS: IPRATROPIUM BROM 0.5 MG/2.5 ML VIAL.NEB (ATROVENT) INH SCH ×6 (03:25→23:18)
[2023-02-23] MEDS: ALBUTEROL SULFATE 0.083% 2.5 MG/3 ML VIAL.NEB INH SCH ×6 (03:26→23:18)
[2023-02-23] MEDS: ACETYLCYSTEINE 20% 4 ML VIAL (RT) INH SCH ×6 (03:35→23:18)
[2023-02-23 05:41] LABS: BASOPHILS % (AUTO) 0.4 % (0.0-2.0); EOSINOPHILS # (AUTO) 0.5 K/uL (0.0-0.4); EOSINOPHILS % (AUTO) 6.7 % (0.0-4.0); HEMATOCRIT 29.6 % (36-54); HEMOGLOBIN 9.6 g/dL (14.0-18.0); LYMPHOCYTES # (AUTO) 1.2 K/uL (1.0-5.5); LYMPHOCYTES % (AUTO) 16.7 % (20.5-51.5); MEAN CORPUSCULAR HEMOGLOBIN 25 pg (27-31); MEAN CORPUSCULAR HGB CONC 32 % (32-36); MEAN CORPUSCULAR VOLUME 77 fL (79.0-98.0); MONOCYTES # (AUTO) 0.5 K/uL (0.0-1.0); MONOCYTES % (AUTO) 7.8 % (1.7-9.3); NEUTROPHILS # (AUTO) 4.8 K/uL (1.8-7.7); NEUTROPHILS % (AUTO) 68.4 % (40.0-70.0); PLATELET COUNT (AUTO) 272 K/uL (130-430); RED BLOOD CELL COUNT(AUTO) 3.83 MIL/uL (4.2-6.2); WHITE BLOOD COUNT (AUTO) 7.1 K/uL (4.8-10.8)
[2023-02-23] MEDS: CEFIDEROCOL SULFATE TOSYLATE 1 GM in NS 100 ML IV SCH ×3 (05:52→20:24)
[2023-02-23] MEDS: DOPamine PREMIX 250 ML IV PRN (05:55)
[2023-02-23 06:22] LABS: ALBUMIN 2.1 g/dL (3.4-4.8); CALCIUM 7.9 mg/dL (8.4-11.0); CREATININE 0.6 mg/dL (0.55-1.30); TOTAL BILIRUBIN 0.3 mg/dL (0.0-1.0)
[2023-02-23 07:24] LABS: INR 1.1 (0.80-1.20)
[2023-02-23] MEDS ORDERED: KCL 20 mEq in 100 mL (PREMIX) 200 ML IV ONE (08:00)
[2023-02-23] MEDS ORDERED: POTASSIUM CHLORIDE 20 MEQ/PKT PACKET PO ONE (08:00)
[2023-02-23] MEDS: FAMOTIDINE 20 MG TABLET GT SCH (08:13)
[2023-02-23] MEDS: BACLOFEN 10 MG TABLET GT SCH ×2 (08:14→20:25)
[2023-02-23] MEDS: MULTIVITS,CA,MINERALS/IRON/FA 1 TABLET GT SCH (08:14)
[2023-02-23] MEDS: FLUDROCORTISONE ACETATE 0.1 MG TABLET( FLORINEF) PO SCH (08:14)
[2023-02-23] MEDS: MAGNESIUM OXIDE 400 MG TABLET GT SCH (08:14)
[2023-02-23] MEDS: GABAPENTIN 300 MG CAPSULE GT SCH ×3 (08:14→20:25)
[2023-02-23] MEDS: LACTOBACILLUS RHAMNOSUS GG 1 CAP CAPSULE GT SCH (08:15)
[2023-02-23] MEDS: ASCORBIC ACID 500 MG TABLET GT SCH (08:15)
[2023-02-23] MEDS: THEOPHYLLINE ANHYDROUS 80 MG/15 ML UDC PO SCH ×3 (08:16→20:25)
[2023-02-23] MEDS: VALPROIC ACID ORAL SYRUP 250 MG/5 ML UDC GT SCH ×2 (08:16→20:25)
[2023-02-23] MEDS: CHLORHEXIDINE GLUC 0.12% 15 ML MOUTHWASH UDC MM SCH ×2 (08:16→20:25)
[2023-02-23] MEDS: levETIRAcetam 500 MG IV PREMIX 100 ML IV SCH ×2 (08:17→20:23)
[2023-02-23] MEDS ORDERED: NS 500 ML IV.SOLN IV ONE (11:30)
[2023-02-23] MEDS ORDERED: LIDOCAINE/EPI 1% 1:100000 20 ML VIAL ONE (11:30)
[2023-02-23] MEDS ORDERED: NS 1000 ML IV.SOLN IV ONE (11:30)
[2023-02-23] MEDS ORDERED: HEPARIN SODIUM,PORCINE 5,000 UNITS/ML VIAL ONE (11:30)
[2023-02-23] MEDS ORDERED: NS IRRIG SOLN 1000 ML IR ONE (11:30)
[2023-02-23] MEDS ORDERED: SEVOFLURANE 15 MIN GAS INH ONE (11:30)
[2023-02-23] MEDS ORDERED: MIDAZOLAM HCL 5 MG/5 ML VIAL ONE (11:30)
[2023-02-23] MEDS ORDERED: fentaNYL CITRATE/PF 100 MCG/2 ML AMP ONE (11:30)
[2023-02-23] MEDS ORDERED: RIVAROXABAN 10 MG TABLET GT ONE (15:15)
[2023-02-23] MEDS: POTASSIUM CHLORIDE 10 MEQ in NACL 0.9% 1,000 ML IV SCH (15:19)
[2023-02-23] MEDS: TEMAZEPAM 15 MG CAPSULE GT SCH (20:24)
[2023-02-24] VITALS (38 sets, daily range): BP systolic 97–159; PULSE 67–111; RESP 12–22; TEMP 96.1–98.4; O2SAT 92–100
[2023-02-24] MEDS: ACETAMINOPHEN 650 MG/20.3 ML UDC GT PRN (00:19)
[2023-02-24] MEDS: IPRATROPIUM BROM 0.5 MG/2.5 ML VIAL.NEB (ATROVENT) INH SCH ×6 (03:43→22:58)
[2023-02-24] MEDS: ALBUTEROL SULFATE 0.083% 2.5 MG/3 ML VIAL.NEB INH SCH ×6 (03:43→22:58)
[2023-02-24] MEDS: ACETYLCYSTEINE 20% 4 ML VIAL (RT) INH SCH ×6 (03:44→22:59)
[2023-02-24] MEDS: CEFIDEROCOL SULFATE TOSYLATE 1 GM in NS 100 ML IV SCH ×3 (04:29→21:28)
[2023-02-24 05:42] LABS: BASOPHILS % (AUTO) 0.3 % (0.0-2.0); EOSINOPHILS # (AUTO) 0.4 K/uL (0.0-0.4); EOSINOPHILS % (AUTO) 4.6 % (0.0-4.0); HEMATOCRIT 27.5 % (36-54); HEMOGLOBIN 8.9 g/dL (14.0-18.0); LYMPHOCYTES # (AUTO) 1.2 K/uL (1.0-5.5); MEAN CORPUSCULAR HEMOGLOBIN 25 pg (27-31); MEAN CORPUSCULAR HGB CONC 32 % (32-36); MEAN CORPUSCULAR VOLUME 78 fL (79.0-98.0); MONOCYTES # (AUTO) 0.6 K/uL (0.0-1.0); MONOCYTES % (AUTO) 6.1 % (1.7-9.3); NEUTROPHILS # (AUTO) 7.3 K/uL (1.8-7.7); PLATELET COUNT (AUTO) 235 K/uL (130-430); RED BLOOD CELL COUNT(AUTO) 3.51 MIL/uL (4.2-6.2); RED CELL DISTRIBUTION WIDTH 22.4 % (9.0-15.0); WHITE BLOOD COUNT (AUTO) 9.6 K/uL (4.8-10.8)
[2023-02-24 06:09] LABS: CALCIUM 7.9 mg/dL (8.4-11.0); CREATININE 0.64 mg/dL (0.55-1.30); TOTAL BILIRUBIN 0.3 mg/dL (0.0-1.0)
[2023-02-24] MEDS: POTASSIUM CHLORIDE 10 MEQ in NACL 0.9% 1,000 ML IV SCH ×2 (08:02→21:33)
[2023-02-24] MEDS: FAMOTIDINE 20 MG TABLET GT SCH (08:28)
[2023-02-24] MEDS: BACLOFEN 10 MG TABLET GT SCH ×2 (08:28→21:27)
[2023-02-24] MEDS: ASCORBIC ACID 500 MG TABLET GT SCH (08:28)
[2023-02-24] MEDS: FLUDROCORTISONE ACETATE 0.1 MG TABLET( FLORINEF) PO SCH (08:28)
[2023-02-24] MEDS: MULTIVITS,CA,MINERALS/IRON/FA 1 TABLET GT SCH (08:28)
[2023-02-24] MEDS: GABAPENTIN 300 MG CAPSULE GT SCH ×3 (08:29→21:27)
[2023-02-24] MEDS: MAGNESIUM OXIDE 400 MG TABLET GT SCH (08:31)
[2023-02-24] MEDS: VALPROIC ACID ORAL SYRUP 250 MG/5 ML UDC GT SCH ×2 (08:31→21:27)
[2023-02-24] MEDS: LACTOBACILLUS RHAMNOSUS GG 1 CAP CAPSULE GT SCH (08:31)
[2023-02-24] MEDS: THEOPHYLLINE ANHYDROUS 80 MG/15 ML UDC PO SCH ×3 (08:32→21:26)
[2023-02-24] MEDS: CHLORHEXIDINE GLUC 0.12% 15 ML MOUTHWASH UDC MM SCH ×2 (08:33→21:26)
[2023-02-24] MEDS: levETIRAcetam 500 MG IV PREMIX 100 ML IV SCH ×2 (08:37→21:37)
[2023-02-24] MEDS ORDERED: RIVAROXABAN 10 MG TABLET GT SCH (09:00)
[2023-02-24] MEDS ORDERED: RIVAROXABAN 10 MG TABLET GT ONE (14:00)
[2023-02-24] MEDS: TEMAZEPAM 15 MG CAPSULE GT SCH (21:27)
[2023-02-25] VITALS (32 sets, daily range): BP systolic 93–150; PULSE 83–105; RESP 15–25; TEMP 96.5–99; O2SAT 95–100
[2023-02-25] MEDS: IPRATROPIUM BROM 0.5 MG/2.5 ML VIAL.NEB (ATROVENT) INH SCH ×6 (03:59→23:37)
[2023-02-25] MEDS: ALBUTEROL SULFATE 0.083% 2.5 MG/3 ML VIAL.NEB INH SCH ×6 (03:59→23:37)
[2023-02-25] MEDS: ACETYLCYSTEINE 20% 4 ML VIAL (RT) INH SCH ×6 (04:00→23:37)
[2023-02-25] MEDS: CEFIDEROCOL SULFATE TOSYLATE 1 GM in NS 100 ML IV SCH (04:48)
[2023-02-25 06:17] LABS: BASOPHILS % (AUTO) 0.3 % (0.0-2.0); EOSINOPHILS # (AUTO) 0.5 K/uL (0.0-0.4); EOSINOPHILS % (AUTO) 5.3 % (0.0-4.0); HEMATOCRIT 28.4 % (36-54); HEMOGLOBIN 9.1 g/dL (14.0-18.0); LYMPHOCYTES # (AUTO) 1.5 K/uL (1.0-5.5); LYMPHOCYTES % (AUTO) 16.8 % (20.5-51.5); MEAN CORPUSCULAR HEMOGLOBIN 26 pg (27-31); MEAN CORPUSCULAR HGB CONC 32 % (32-36); MEAN CORPUSCULAR VOLUME 79 fL (79.0-98.0); MONOCYTES # (AUTO) 0.6 K/uL (0.0-1.0); MONOCYTES % (AUTO) 6.7 % (1.7-9.3); NEUTROPHILS # (AUTO) 6.3 K/uL (1.8-7.7); NEUTROPHILS % (AUTO) 70.9 % (40.0-70.0); PLATELET COUNT (AUTO) 205 K/uL (130-430); RED BLOOD CELL COUNT(AUTO) 3.58 MIL/uL (4.2-6.2); RED CELL DISTRIBUTION WIDTH 23.2 % (9.0-15.0); WHITE BLOOD COUNT (AUTO) 8.8 K/uL (4.8-10.8)
[2023-02-25 07:07] LABS: ALBUMIN 1.9 g/dL (3.4-4.8); CALCIUM 7.9 mg/dL (8.4-11.0); CREATININE 0.56 mg/dL (0.55-1.30); TOTAL BILIRUBIN 0.3 mg/dL (0.0-1.0)
[2023-02-25] MEDS: GABAPENTIN 300 MG CAPSULE GT SCH ×3 (08:25→23:51)
[2023-02-25] MEDS: MULTIVITS,CA,MINERALS/IRON/FA 1 TABLET GT SCH (08:26)
[2023-02-25] MEDS: levETIRAcetam 500 MG IV PREMIX 100 ML IV SCH (08:26)
[2023-02-25] MEDS: BACLOFEN 10 MG TABLET GT SCH ×2 (08:26→23:50)
[2023-02-25] MEDS: CHLORHEXIDINE GLUC 0.12% 15 ML MOUTHWASH UDC MM SCH (08:26)
[2023-02-25] MEDS: ASCORBIC ACID 500 MG TABLET GT SCH (08:26)
[2023-02-25] MEDS: FLUDROCORTISONE ACETATE 0.1 MG TABLET( FLORINEF) PO SCH (08:26)
[2023-02-25] MEDS: FAMOTIDINE 20 MG TABLET GT SCH (08:26)
[2023-02-25] MEDS: VALPROIC ACID ORAL SYRUP 250 MG/5 ML UDC GT SCH ×2 (08:27→23:51)
[2023-02-25] MEDS: THEOPHYLLINE ANHYDROUS 80 MG/15 ML UDC PO SCH ×2 (08:27→15:14)
[2023-02-25] MEDS: RIVAROXABAN 10 MG TABLET GT SCH (08:28)
[2023-02-25] MEDS: MAGNESIUM OXIDE 400 MG TABLET GT SCH (08:29)
[2023-02-25] MEDS: LACTOBACILLUS RHAMNOSUS GG 1 CAP CAPSULE GT SCH (08:29)
[2023-02-25] MEDS ORDERED: POTASSIUM CHLORIDE 20 MEQ/PKT PACKET PO ONE ×2 (10:00→14:00)
[2023-02-25] MEDS: POTASSIUM CHLORIDE 10 MEQ in NACL 0.9% 1,000 ML IV SCH (11:14)
[2023-02-25] MEDS ORDERED: ALBUMIN HUMAN 25% 50 ML IV ONE (13:15)
[2023-02-25] MEDS: ACETAMINOPHEN 650 MG/20.3 ML UDC GT PRN (15:15)
[2023-02-26] VITALS (17 sets, daily range): BP systolic 90–109; PULSE 72–102; RESP 16–18; TEMP 97.6–99.8; O2SAT 95–99
[2023-02-26] MEDS: levETIRAcetam 500 MG IV PREMIX 100 ML IV SCH ×2 (00:01→09:12)
[2023-02-26] MEDS: CHLORHEXIDINE GLUC 0.12% 15 ML MOUTHWASH UDC MM SCH ×3 (00:02→21:53)
[2023-02-26] MEDS: THEOPHYLLINE ANHYDROUS 80 MG/15 ML UDC PO SCH (00:02)
[2023-02-26] MEDS: ALBUTEROL SULFATE 0.083% 2.5 MG/3 ML VIAL.NEB INH SCH ×6 (04:08→23:18)
[2023-02-26] MEDS: IPRATROPIUM BROM 0.5 MG/2.5 ML VIAL.NEB (ATROVENT) INH SCH ×6 (04:09→23:18)
[2023-02-26] MEDS: ACETYLCYSTEINE 20% 4 ML VIAL (RT) INH SCH ×6 (04:09→23:18)
[2023-02-26] MEDS: POTASSIUM CHLORIDE 10 MEQ in NACL 0.9% 1,000 ML IV SCH ×2 (06:15→22:05)
[2023-02-26 07:00] LABS: BASOPHILS % (AUTO) 0.3 % (0.0-2.0); EOSINOPHILS # (AUTO) 0.4 K/uL (0.0-0.4); EOSINOPHILS % (AUTO) 4.1 % (0.0-4.0); HEMATOCRIT 27.1 % (36-54); HEMOGLOBIN 8.8 g/dL (14.0-18.0); LYMPHOCYTES # (AUTO) 1.5 K/uL (1.0-5.5); LYMPHOCYTES % (AUTO) 15.1 % (20.5-51.5); MEAN CORPUSCULAR HEMOGLOBIN 26 pg (27-31); MEAN CORPUSCULAR HGB CONC 32 % (32-36); MEAN CORPUSCULAR VOLUME 79 fL (79.0-98.0); MONOCYTES # (AUTO) 0.8 K/uL (0.0-1.0); MONOCYTES % (AUTO) 8.2 % (1.7-9.3); NEUTROPHILS # (AUTO) 7.2 K/uL (1.8-7.7); NEUTROPHILS % (AUTO) 72.3 % (40.0-70.0); PLATELET COUNT (AUTO) 241 K/uL (130-430); RED BLOOD CELL COUNT(AUTO) 3.41 MIL/uL (4.2-6.2); RED CELL DISTRIBUTION WIDTH 23.7 % (9.0-15.0); WHITE BLOOD COUNT (AUTO) 9.9 K/uL (4.8-10.8)
[2023-02-26 07:04] LABS: ALBUMIN 1.8 g/dL (3.4-4.8); CREATININE 0.49 mg/dL (0.55-1.30); TOTAL BILIRUBIN 0.2 mg/dL (0.0-1.0)
[2023-02-26] MEDS: MULTIVITS,CA,MINERALS/IRON/FA 1 TABLET GT SCH (09:14)
[2023-02-26] MEDS: FLUDROCORTISONE ACETATE 0.1 MG TABLET( FLORINEF) PO SCH (09:14)
[2023-02-26] MEDS: GABAPENTIN 300 MG CAPSULE GT SCH ×3 (09:14→21:53)
[2023-02-26] MEDS: VALPROIC ACID ORAL SYRUP 250 MG/5 ML UDC GT SCH ×2 (09:14→21:55)
[2023-02-26] MEDS: FAMOTIDINE 20 MG TABLET GT SCH (09:14)
[2023-02-26] MEDS: MAGNESIUM OXIDE 400 MG TABLET GT SCH (09:14)
[2023-02-26] MEDS: LACTOBACILLUS RHAMNOSUS GG 1 CAP CAPSULE GT SCH (09:15)
[2023-02-26] MEDS: ASCORBIC ACID 500 MG TABLET GT SCH (09:15)
[2023-02-26] MEDS: BACLOFEN 10 MG TABLET GT SCH ×2 (09:15→21:53)
[2023-02-26] MEDS: RIVAROXABAN 10 MG TABLET GT SCH (09:16)
[2023-02-26] MEDS: KCL 20 mEq in 100 mL (PREMIX) 100 ML IV SCH ×2 (10:21→13:10)
[2023-02-26] MEDS: TEMAZEPAM 15 MG CAPSULE GT SCH ×2 (21:53)
[2023-02-26] MEDS: LevETIRAcetam 500 MG/5 ML UDC ORAL LIQUID GT SCH (21:54)
[2023-02-27] VITALS (42 sets, daily range): BP systolic 72–124; PULSE 68–106; RESP 15–34; TEMP 98.6–100; O2SAT 92–100
[2023-02-27] MEDS: ACETYLCYSTEINE 20% 4 ML VIAL (RT) INH SCH ×5 (04:07→19:20)
[2023-02-27] MEDS: ALBUTEROL SULFATE 0.083% 2.5 MG/3 ML VIAL.NEB INH SCH ×5 (04:07→19:19)
[2023-02-27] MEDS: IPRATROPIUM BROM 0.5 MG/2.5 ML VIAL.NEB (ATROVENT) INH SCH ×5 (04:08→19:19)
[2023-02-27 07:39] LABS: ALBUMIN 1.8 g/dL (3.4-4.8); CALCIUM 7.8 mg/dL (8.4-11.0); CREATININE 0.62 mg/dL (0.55-1.30); TOTAL BILIRUBIN 0.1 mg/dL (0.0-1.0)
[2023-02-27] MEDS ORDERED: NACL 0.9% 1,000 ML IV ONE (08:30)
[2023-02-27] MEDS: ALBUMIN HUMAN 25% 50 ML IV SCH ×3 (11:23→18:40)
[2023-02-27] MEDS: FAMOTIDINE 20 MG TABLET GT SCH (12:40)
[2023-02-27] MEDS: GABAPENTIN 300 MG CAPSULE GT SCH ×3 (12:41→20:55)
[2023-02-27] MEDS: ASCORBIC ACID 500 MG TABLET GT SCH (12:42)
[2023-02-27] MEDS: MULTIVITS,CA,MINERALS/IRON/FA 1 TABLET GT SCH (12:42)
[2023-02-27] MEDS: FLUDROCORTISONE ACETATE 0.1 MG TABLET( FLORINEF) PO SCH (12:42)
[2023-02-27] MEDS: BACLOFEN 10 MG TABLET GT SCH ×2 (12:43→20:53)
[2023-02-27] MEDS: RIVAROXABAN 10 MG TABLET GT SCH (12:44)
[2023-02-27] MEDS: LACTOBACILLUS RHAMNOSUS GG 1 CAP CAPSULE GT SCH (12:46)
[2023-02-27] MEDS: VALPROIC ACID ORAL SYRUP 250 MG/5 ML UDC GT SCH ×2 (12:46→20:54)
[2023-02-27] MEDS: LevETIRAcetam 500 MG/5 ML UDC ORAL LIQUID GT SCH ×2 (12:47→20:55)
[2023-02-27] MEDS: CHLORHEXIDINE GLUC 0.12% 15 ML MOUTHWASH UDC MM SCH ×2 (12:47→20:56)
[2023-02-27] MEDS: THEOPHYLLINE ANHYDROUS 80 MG/15 ML UDC PO SCH (12:48)
[2023-02-27] MEDS: MAGNESIUM OXIDE 400 MG TABLET GT SCH (12:49)
[2023-02-27] MEDS ORDERED: POTASSIUM CHLORIDE 20 MEQ/PKT PACKET GT ONE (13:00)
[2023-02-27] MEDS: PIPERACILLIN/TAZO 4.5GM/DEX-IS 100 ML IV SCH ×2 (13:08→21:27)
[2023-02-27] MEDS: POTASSIUM CHLORIDE 10 MEQ in NACL 0.9% 1,000 ML IV SCH ×3 (13:10→20:29)
[2023-02-27] MEDS ORDERED: POTASSIUM CHLORIDE 20 MEQ/PKT PACKET ONE (13:13)
[2023-02-27] MEDS ORDERED: NOREPINEPHRINE 4 MG/4 ML VIAL IV ONE (13:40)
[2023-02-27] MEDS ORDERED: NOREPINEPHRINE BITARTRATE 4 MG in D5W 246 ML IV PRN (13:45)
[2023-02-27] MEDS: NOREPINEPHRINE BITARTRATE 8 MG in NS 242 ML IV PRN (14:05)
[2023-02-27] MEDS: POTASSIUM CHLORIDE 20 MEQ/PKT PACKET GT SCH (20:55)
[2023-02-27] MEDS: TEMAZEPAM 15 MG CAPSULE GT SCH (20:57)
[2023-02-27] MEDS ORDERED: CEFEPIME 1 GM in D5W 50 ML IV SCH (21:00)
[2023-02-28] VITALS (66 sets, daily range): BP systolic 84–156; PULSE 57–128; RESP 16–31; TEMP 98.4–101.1; O2SAT 88–99
[2023-02-28] MEDS: POTASSIUM CHLORIDE 10 MEQ in NACL 0.9% 1,000 ML IV SCH ×3 (03:31→16:52)
[2023-02-28] MEDS: ALBUTEROL SULFATE 0.083% 2.5 MG/3 ML VIAL.NEB INH SCH ×7 (04:03→23:05)
[2023-02-28] MEDS: IPRATROPIUM BROM 0.5 MG/2.5 ML VIAL.NEB (ATROVENT) INH SCH ×7 (04:03→23:05)
[2023-02-28] MEDS: ACETYLCYSTEINE 20% 4 ML VIAL (RT) INH SCH ×7 (04:04→23:04)
[2023-02-28] MEDS: PIPERACILLIN/TAZO 4.5GM/DEX-IS 100 ML IV SCH ×3 (05:34→21:58)
[2023-02-28 06:19] LABS: BASOPHILS # (AUTO) 0.1 K/uL (0.0-0.2); BASOPHILS % (AUTO) 0.6 % (0.0-2.0); EOSINOPHILS # (AUTO) 0.6 K/uL (0.0-0.4); EOSINOPHILS % (AUTO) 4.8 % (0.0-4.0); HEMATOCRIT 28.5 % (36-54); HEMOGLOBIN 9.3 g/dL (14.0-18.0); LYMPHOCYTES # (AUTO) 1.2 K/uL (1.0-5.5); LYMPHOCYTES % (AUTO) 8.9 % (20.5-51.5); MEAN CORPUSCULAR HEMOGLOBIN 26 pg (27-31); MEAN CORPUSCULAR HGB CONC 33 % (32-36); MEAN CORPUSCULAR VOLUME 80 fL (79.0-98.0); MONOCYTES # (AUTO) 1.2 K/uL (0.0-1.0); MONOCYTES % (AUTO) 9.2 % (1.7-9.3); NEUTROPHILS # (AUTO) 10.2 K/uL (1.8-7.7); NEUTROPHILS % (AUTO) 76.5 % (40.0-70.0); PLATELET COUNT (AUTO) 326 K/uL (130-430); RED BLOOD CELL COUNT(AUTO) 3.57 MIL/uL (4.2-6.2); WHITE BLOOD COUNT (AUTO) 13.4 K/uL (4.8-10.8)
[2023-02-28 06:48] LABS: ALBUMIN 2.2 g/dL (3.4-4.8); CALCIUM 7.5 mg/dL (8.4-11.0); CREATININE 0.57 mg/dL (0.55-1.30); TOTAL BILIRUBIN 0.3 mg/dL (0.0-1.0)
[2023-02-28] MEDS: CHLORHEXIDINE GLUC 0.12% 15 ML MOUTHWASH UDC MM SCH ×2 (09:21→21:57)
[2023-02-28] MEDS: LevETIRAcetam 500 MG/5 ML UDC ORAL LIQUID GT SCH ×2 (09:29→21:57)
[2023-02-28] MEDS: THEOPHYLLINE ANHYDROUS 80 MG/15 ML UDC PO SCH (09:29)
[2023-02-28] MEDS: RIVAROXABAN 10 MG TABLET GT SCH (09:30)
[2023-02-28] MEDS: VALPROIC ACID ORAL SYRUP 250 MG/5 ML UDC GT SCH ×2 (09:31→21:56)
[2023-02-28] MEDS: FAMOTIDINE 20 MG TABLET GT SCH (09:31)
[2023-02-28] MEDS: POTASSIUM CHLORIDE 20 MEQ/PKT PACKET GT SCH ×2 (09:31→21:56)
[2023-02-28] MEDS: BACLOFEN 10 MG TABLET GT SCH ×2 (09:32→21:56)
[2023-02-28] MEDS: ASCORBIC ACID 500 MG TABLET GT SCH (09:32)
[2023-02-28] MEDS: MULTIVITS,CA,MINERALS/IRON/FA 1 TABLET GT SCH (09:32)
[2023-02-28] MEDS: FLUDROCORTISONE ACETATE 0.1 MG TABLET( FLORINEF) PO SCH (09:32)
[2023-02-28] MEDS: LACTOBACILLUS RHAMNOSUS GG 1 CAP CAPSULE GT SCH (09:32)
[2023-02-28] MEDS: GABAPENTIN 300 MG CAPSULE GT SCH ×3 (09:32→21:57)
[2023-02-28] MEDS: MAGNESIUM OXIDE 400 MG TABLET GT SCH (09:32)
[2023-02-28 12:28] LABS: SPE INTERPRETATION SEE SEPERATE REPORT
[2023-02-28] MEDS: ACETAMINOPHEN 650 MG/20.3 ML UDC GT PRN (13:03)
[2023-02-28] MEDS: NOREPINEPHRINE BITARTRATE 8 MG in NS 242 ML IV PRN (18:32)
[2023-02-28] MEDS: TEMAZEPAM 15 MG CAPSULE GT SCH (21:57)
[2023-03-01] VITALS (53 sets, daily range): BP systolic 86–148; PULSE 37–97; RESP 13–31; TEMP 97.9–99.5; O2SAT 94–100
[2023-03-01] MEDS: POTASSIUM CHLORIDE 10 MEQ in NACL 0.9% 1,000 ML IV SCH ×2 (00:31→12:35)
[2023-03-01] MEDS: ALBUTEROL SULFATE 0.083% 2.5 MG/3 ML VIAL.NEB INH SCH ×6 (03:09→23:19)
[2023-03-01] MEDS: ACETYLCYSTEINE 20% 4 ML VIAL (RT) INH SCH ×6 (03:10→23:33)
[2023-03-01] MEDS: IPRATROPIUM BROM 0.5 MG/2.5 ML VIAL.NEB (ATROVENT) INH SCH ×6 (03:10→23:20)
[2023-03-01] MEDS: ACETAMINOPHEN 650 MG/20.3 ML UDC GT PRN (04:18)
[2023-03-01 05:34] LABS: CALCIUM 7.5 mg/dL (8.4-11.0); CREATININE 0.56 mg/dL (0.55-1.30)
[2023-03-01] MEDS: PIPERACILLIN/TAZO 4.5GM/DEX-IS 100 ML IV SCH ×3 (05:49→22:04)
[2023-03-01] MEDS: THEOPHYLLINE ANHYDROUS 80 MG/15 ML UDC PO SCH (11:03)
[2023-03-01] MEDS: RIVAROXABAN 10 MG TABLET GT SCH (11:04)
[2023-03-01] MEDS: VALPROIC ACID ORAL SYRUP 250 MG/5 ML UDC GT SCH ×2 (11:05→21:59)
[2023-03-01] MEDS: MAGNESIUM OXIDE 400 MG TABLET GT SCH (11:05)
[2023-03-01] MEDS: POTASSIUM CHLORIDE 20 MEQ/PKT PACKET GT SCH ×2 (11:05→22:00)
[2023-03-01] MEDS: FAMOTIDINE 20 MG TABLET GT SCH (11:06)
[2023-03-01] MEDS: CHLORHEXIDINE GLUC 0.12% 15 ML MOUTHWASH UDC MM SCH ×2 (11:06→22:03)
[2023-03-01] MEDS: BACLOFEN 10 MG TABLET GT SCH ×2 (11:06→21:58)
[2023-03-01] MEDS: GABAPENTIN 300 MG CAPSULE GT SCH ×3 (11:06→22:01)
[2023-03-01] MEDS: LevETIRAcetam 500 MG/5 ML UDC ORAL LIQUID GT SCH ×2 (11:06→22:00)
[2023-03-01] MEDS: LACTOBACILLUS RHAMNOSUS GG 1 CAP CAPSULE GT SCH (11:07)
[2023-03-01] MEDS: ASCORBIC ACID 500 MG TABLET GT SCH (11:07)
[2023-03-01] MEDS: MULTIVITS,CA,MINERALS/IRON/FA 1 TABLET GT SCH (11:07)
[2023-03-01] MEDS: FLUDROCORTISONE ACETATE 0.1 MG TABLET( FLORINEF) PO SCH (12:34)
[2023-03-01] MEDS: NACL 0.9% 1,000 ML IV SCH (16:45)
[2023-03-01] MEDS: TEMAZEPAM 15 MG CAPSULE GT SCH (21:00)
[2023-03-01 21:07] LABS: BILIRUBIN,URINE NEGATIVE (NEGATIVE); BLOOD, URINE 3+ (NEGATIVE); CLARITY/URINE CLOUDY (CLEAR); COLOR,URINE RED (YELLOW); GLUCOSE,URINE NEGATIVE (NEGATIVE); KETONES,URINE TRACE (NEGATIVE); LEUKOCYTE ESTERASE ,URINE 2+ (NEGATIVE); NITRITE, URINE POSITIVE (NEGATIVE); PROTEIN URINE 2+ (NEGATIVE); UROBILINOGEN,URINE 0.2 (0.2-1.0)
[2023-03-01 21:50] LABS: BACTERIA,URINE FEW /HPF (None Seen); MUCUS,URINE 1+ /LPF (None Seen); RBC,URINE >100 /HPF (0-3); WBC,URINE 50-80 /HPF (0-3)
[2023-03-02] VITALS (35 sets, daily range): BP systolic 82–176; PULSE 61–109; RESP 15–23; TEMP 97.4–98.8; O2SAT 97–100
[2023-03-02] MEDS: NOREPINEPHRINE BITARTRATE 8 MG in NS 242 ML IV PRN (02:18)
[2023-03-02] MEDS: ALBUTEROL SULFATE 0.083% 2.5 MG/3 ML VIAL.NEB INH SCH ×6 (03:11→23:21)
[2023-03-02] MEDS: IPRATROPIUM BROM 0.5 MG/2.5 ML VIAL.NEB (ATROVENT) INH SCH ×6 (03:12→23:21)
[2023-03-02] MEDS: ACETYLCYSTEINE 20% 4 ML VIAL (RT) INH SCH ×6 (03:23→23:21)
[2023-03-02 05:22] LABS: BASOPHILS % (AUTO) 0.4 % (0.0-2.0); EOSINOPHILS # (AUTO) 0.7 K/uL (0.0-0.4); EOSINOPHILS % (AUTO) 6.8 % (0.0-4.0); HEMATOCRIT 26.9 % (36-54); HEMOGLOBIN 8.7 g/dL (14.0-18.0); LYMPHOCYTES # (AUTO) 1.2 K/uL (1.0-5.5); LYMPHOCYTES % (AUTO) 12.2 % (20.5-51.5); MEAN CORPUSCULAR HEMOGLOBIN 26 pg (27-31); MEAN CORPUSCULAR HGB CONC 32 % (32-36); MEAN CORPUSCULAR VOLUME 81 fL (79.0-98.0); MONOCYTES # (AUTO) 1.1 K/uL (0.0-1.0); MONOCYTES % (AUTO) 11.1 % (1.7-9.3); NEUTROPHILS # (AUTO) 6.7 K/uL (1.8-7.7); NEUTROPHILS % (AUTO) 69.5 % (40.0-70.0); PLATELET COUNT (AUTO) 307 K/uL (130-430); RED BLOOD CELL COUNT(AUTO) 3.34 MIL/uL (4.2-6.2); RED CELL DISTRIBUTION WIDTH 24.2 % (9.0-15.0); WHITE BLOOD COUNT (AUTO) 9.6 K/uL (4.8-10.8)
[2023-03-02 05:44] LABS: ALBUMIN 1.9 g/dL (3.4-4.8); CALCIUM 7.5 mg/dL (8.4-11.0); CREATININE 0.48 mg/dL (0.55-1.30); TOTAL BILIRUBIN 0.2 mg/dL (0.0-1.0)
[2023-03-02] MEDS: PIPERACILLIN/TAZO 4.5GM/DEX-IS 100 ML IV SCH ×3 (07:22→21:19)
[2023-03-02] MEDS: NACL 0.9% 1,000 ML IV SCH ×2 (07:23→12:31)
[2023-03-02] MEDS: CHLORHEXIDINE GLUC 0.12% 15 ML MOUTHWASH UDC MM SCH ×2 (09:17→21:18)
[2023-03-02] MEDS: VALPROIC ACID ORAL SYRUP 250 MG/5 ML UDC GT SCH ×2 (09:17→21:16)
[2023-03-02] MEDS: LevETIRAcetam 500 MG/5 ML UDC ORAL LIQUID GT SCH ×2 (09:17→21:16)
[2023-03-02] MEDS: ASCORBIC ACID 500 MG TABLET GT SCH (09:18)
[2023-03-02] MEDS: BACLOFEN 10 MG TABLET GT SCH ×2 (09:18→21:15)
[2023-03-02] MEDS: MULTIVITS,CA,MINERALS/IRON/FA 1 TABLET GT SCH (09:18)
[2023-03-02] MEDS: LACTOBACILLUS RHAMNOSUS GG 1 CAP CAPSULE GT SCH (09:18)
[2023-03-02] MEDS: MAGNESIUM OXIDE 400 MG TABLET GT SCH (09:18)
[2023-03-02] MEDS: FLUDROCORTISONE ACETATE 0.1 MG TABLET( FLORINEF) PO SCH (09:18)
[2023-03-02] MEDS: GABAPENTIN 300 MG CAPSULE GT SCH ×3 (09:18→21:17)
[2023-03-02] MEDS: FAMOTIDINE 20 MG TABLET GT SCH (09:18)
[2023-03-02] MEDS: THEOPHYLLINE ANHYDROUS 80 MG/15 ML UDC PO SCH (09:30)
[2023-03-02] MEDS: ALBUMIN HUMAN 25% 50 ML IV SCH ×2 (12:31→16:13)
[2023-03-02] MEDS: ACETAMINOPHEN 650 MG/20.3 ML UDC GT PRN (16:14)
[2023-03-02] MEDS: TEMAZEPAM 15 MG CAPSULE GT SCH (21:17)
[2023-03-03] VITALS (35 sets, daily range): BP systolic 84–123; PULSE 57–82; RESP 15–21; TEMP 98–98.9; O2SAT 95–100
[2023-03-03] MEDS: NACL 0.9% 1,000 ML IV SCH ×3 (01:24→18:33)
[2023-03-03] MEDS: ALBUMIN HUMAN 25% 50 ML IV SCH (01:26)
[2023-03-03] MEDS: ALBUTEROL SULFATE 0.083% 2.5 MG/3 ML VIAL.NEB INH SCH ×6 (03:11→23:10)
[2023-03-03] MEDS: ACETYLCYSTEINE 20% 4 ML VIAL (RT) INH SCH ×6 (03:12→23:21)
[2023-03-03] MEDS: IPRATROPIUM BROM 0.5 MG/2.5 ML VIAL.NEB (ATROVENT) INH SCH ×6 (03:12→23:10)
[2023-03-03 05:47] LABS: CALCIUM 7.7 mg/dL (8.4-11.0); CREATININE 0.49 mg/dL (0.55-1.30)
[2023-03-03] MEDS: PIPERACILLIN/TAZO 4.5GM/DEX-IS 100 ML IV SCH ×2 (06:19→13:16)
[2023-03-03] MEDS: FLUDROCORTISONE ACETATE 0.1 MG TABLET( FLORINEF) PO SCH (08:25)
[2023-03-03] MEDS: GABAPENTIN 300 MG CAPSULE GT SCH ×2 (08:25→14:33)
[2023-03-03] MEDS: BACLOFEN 10 MG TABLET GT SCH (08:25)
[2023-03-03] MEDS: FAMOTIDINE 20 MG TABLET GT SCH (08:25)
[2023-03-03] MEDS: MAGNESIUM OXIDE 400 MG TABLET GT SCH (08:26)
[2023-03-03] MEDS: LACTOBACILLUS RHAMNOSUS GG 1 CAP CAPSULE GT SCH (08:26)
[2023-03-03] MEDS: ASCORBIC ACID 500 MG TABLET GT SCH (08:26)
[2023-03-03] MEDS: MULTIVITS,CA,MINERALS/IRON/FA 1 TABLET GT SCH (08:26)
[2023-03-03] MEDS: CHLORHEXIDINE GLUC 0.12% 15 ML MOUTHWASH UDC MM SCH (08:27)
[2023-03-03] MEDS: THEOPHYLLINE ANHYDROUS 80 MG/15 ML UDC PO SCH (08:29)
[2023-03-03] MEDS: VALPROIC ACID ORAL SYRUP 250 MG/5 ML UDC GT SCH (08:29)
[2023-03-03] MEDS: LevETIRAcetam 500 MG/5 ML UDC ORAL LIQUID GT SCH (08:30)
[2023-03-03] MEDS ORDERED: POTASSIUM CHLORIDE 20 MEQ/PKT PACKET PO ONE (14:00)
[2023-03-03] MEDS ORDERED: POTASSIUM CHLORIDE 20 MEQ/PKT PACKET ONE (14:35)
[2023-03-04] VITALS (35 sets, daily range): BP systolic 87–123; PULSE 58–98; RESP 14–20; TEMP 97.8–98.8; O2SAT 95–100
[2023-03-04] MEDS: BACLOFEN 10 MG TABLET GT SCH ×3 (02:30→22:07)
[2023-03-04] MEDS: VALPROIC ACID ORAL SYRUP 250 MG/5 ML UDC GT SCH ×3 (02:31→22:09)
[2023-03-04] MEDS: TEMAZEPAM 15 MG CAPSULE GT SCH ×2 (02:32→22:10)
[2023-03-04] MEDS: LevETIRAcetam 500 MG/5 ML UDC ORAL LIQUID GT SCH ×3 (02:32→22:08)
[2023-03-04] MEDS: GABAPENTIN 300 MG CAPSULE GT SCH ×4 (02:32→22:09)
[2023-03-04] MEDS: CHLORHEXIDINE GLUC 0.12% 15 ML MOUTHWASH UDC MM SCH ×3 (02:33→22:11)
[2023-03-04] MEDS: PIPERACILLIN/TAZO 4.5GM/DEX-IS 100 ML IV SCH ×4 (02:34→22:12)
[2023-03-04] MEDS: ALBUTEROL SULFATE 0.083% 2.5 MG/3 ML VIAL.NEB INH SCH ×5 (03:15→19:49)
[2023-03-04] MEDS: IPRATROPIUM BROM 0.5 MG/2.5 ML VIAL.NEB (ATROVENT) INH SCH ×5 (03:16→19:48)
[2023-03-04] MEDS: ACETYLCYSTEINE 20% 4 ML VIAL (RT) INH SCH ×5 (03:29→19:48)
[2023-03-04 06:06] LABS: BASOPHILS % (AUTO) 0.5 % (0.0-2.0); EOSINOPHILS # (AUTO) 0.6 K/uL (0.0-0.4); EOSINOPHILS % (AUTO) 8.4 % (0.0-4.0); HEMATOCRIT 28.5 % (36-54); LYMPHOCYTES # (AUTO) 1.3 K/uL (1.0-5.5); LYMPHOCYTES % (AUTO) 17.2 % (20.5-51.5); MEAN CORPUSCULAR HEMOGLOBIN 26 pg (27-31); MEAN CORPUSCULAR HGB CONC 32 % (32-36); MEAN CORPUSCULAR VOLUME 82 fL (79.0-98.0); MONOCYTES # (AUTO) 0.9 K/uL (0.0-1.0); MONOCYTES % (AUTO) 12.8 % (1.7-9.3); NEUTROPHILS # (AUTO) 4.4 K/uL (1.8-7.7); NEUTROPHILS % (AUTO) 61.1 % (40.0-70.0); PLATELET COUNT (AUTO) 276 K/uL (130-430); RED BLOOD CELL COUNT(AUTO) 3.49 MIL/uL (4.2-6.2); RED CELL DISTRIBUTION WIDTH 24.3 % (9.0-15.0); WHITE BLOOD COUNT (AUTO) 7.3 K/uL (4.8-10.8)
[2023-03-04 06:18] LABS: CALCIUM 7.9 mg/dL (8.4-11.0); CREATININE 0.5 mg/dL (0.55-1.30)
[2023-03-04] MEDS: NACL 0.9% 1,000 ML IV SCH ×2 (06:51→16:51)
[2023-03-04] MEDS ORDERED: ACETYLCYSTEINE 20% 4 ML VIAL (RT) ONE (07:23)
[2023-03-04] MEDS: THEOPHYLLINE ANHYDROUS 80 MG/15 ML UDC PO SCH (08:37)
[2023-03-04] MEDS: MULTIVITS,CA,MINERALS/IRON/FA 1 TABLET GT SCH (08:38)
[2023-03-04] MEDS: FAMOTIDINE 20 MG TABLET GT SCH (08:38)
[2023-03-04] MEDS: MAGNESIUM OXIDE 400 MG TABLET GT SCH (08:38)
[2023-03-04] MEDS: FLUDROCORTISONE ACETATE 0.1 MG TABLET( FLORINEF) PO SCH (08:38)
[2023-03-04] MEDS: ASCORBIC ACID 500 MG TABLET GT SCH (08:38)
[2023-03-04] MEDS: LACTOBACILLUS RHAMNOSUS GG 1 CAP CAPSULE GT SCH (08:39)
[2023-03-04] MEDS ORDERED: POTASSIUM CHLORIDE 20 MEQ/PKT PACKET GT ONE (16:45)
[2023-03-04] MEDS: TOBRAMYCIN 300MG/5ML INH AMPUL.NEB INH SCH (19:50)
[2023-03-05] VITALS (29 sets, daily range): BP systolic 86–126; PULSE 60–88; RESP 10–26; TEMP 98.2–102; O2SAT 95–100
[2023-03-05 05:21] LABS: CALCIUM 7.8 mg/dL (8.4-11.0); CREATININE 0.48 mg/dL (0.55-1.30)
[2023-03-05] MEDS: NACL 0.9% 1,000 ML IV SCH ×3 (05:47→20:15)
[2023-03-05] MEDS: PIPERACILLIN/TAZO 4.5GM/DEX-IS 100 ML IV SCH ×3 (05:48→23:40)
[2023-03-05] MEDS: ALBUTEROL SULFATE 0.083% 2.5 MG/3 ML VIAL.NEB INH SCH ×7 (05:50→23:56)
[2023-03-05] MEDS: ACETYLCYSTEINE 20% 4 ML VIAL (RT) INH SCH ×7 (05:51→23:56)
[2023-03-05] MEDS: IPRATROPIUM BROM 0.5 MG/2.5 ML VIAL.NEB (ATROVENT) INH SCH ×7 (05:51→23:56)
[2023-03-05] MEDS: LACTOBACILLUS RHAMNOSUS GG 1 CAP CAPSULE GT SCH (09:25)
[2023-03-05] MEDS: BACLOFEN 10 MG TABLET GT SCH ×2 (09:25→23:36)
[2023-03-05] MEDS: LevETIRAcetam 500 MG/5 ML UDC ORAL LIQUID GT SCH ×2 (09:26→23:38)
[2023-03-05] MEDS: VALPROIC ACID ORAL SYRUP 250 MG/5 ML UDC GT SCH ×2 (09:26→23:38)
[2023-03-05] MEDS: FAMOTIDINE 20 MG TABLET GT SCH (09:26)
[2023-03-05] MEDS: GABAPENTIN 300 MG CAPSULE GT SCH ×3 (09:26→23:38)
[2023-03-05] MEDS: MAGNESIUM OXIDE 400 MG TABLET GT SCH (09:26)
[2023-03-05] MEDS: CHLORHEXIDINE GLUC 0.12% 15 ML MOUTHWASH UDC MM SCH ×2 (09:27→23:39)
[2023-03-05] MEDS: ASCORBIC ACID 500 MG TABLET GT SCH (09:27)
[2023-03-05] MEDS: MULTIVITS,CA,MINERALS/IRON/FA 1 TABLET GT SCH (09:27)
[2023-03-05] MEDS: THEOPHYLLINE ANHYDROUS 80 MG/15 ML UDC PO SCH (09:29)
[2023-03-05] MEDS: FLUDROCORTISONE ACETATE 0.1 MG TABLET( FLORINEF) PO SCH (09:30)
[2023-03-05] MEDS: TOBRAMYCIN 300MG/5ML INH AMPUL.NEB INH SCH ×2 (10:20→21:28)
[2023-03-05] MEDS: ACETAMINOPHEN 650 MG/20.3 ML UDC GT PRN (11:27)
[2023-03-05] MEDS ORDERED: POTASSIUM CHLORIDE 20 MEQ/PKT PACKET GT ONE (14:45)
[2023-03-06] VITALS (29 sets, daily range): BP systolic 81–146; PULSE 60–83; RESP 13–20; TEMP 98.6–99; O2SAT 95–100
[2023-03-06 05:24] LABS: CALCIUM 7.7 mg/dL (8.4-11.0); CREATININE 0.49 mg/dL (0.55-1.30)
[2023-03-06] MEDS: NACL 0.9% 1,000 ML IV SCH ×2 (06:15→13:11)
[2023-03-06] MEDS: ACETYLCYSTEINE 20% 4 ML VIAL (RT) INH SCH ×5 (07:01→23:32)
[2023-03-06] MEDS: ALBUTEROL SULFATE 0.083% 2.5 MG/3 ML VIAL.NEB INH SCH ×5 (07:02→23:31)
[2023-03-06] MEDS: IPRATROPIUM BROM 0.5 MG/2.5 ML VIAL.NEB (ATROVENT) INH SCH ×5 (07:02→23:31)
[2023-03-06] MEDS: TOBRAMYCIN 300MG/5ML INH AMPUL.NEB INH SCH ×2 (07:03→20:01)
[2023-03-06] MEDS: MULTIVITS,CA,MINERALS/IRON/FA 1 TABLET GT SCH (09:35)
[2023-03-06] MEDS: BACLOFEN 10 MG TABLET GT SCH ×2 (09:35→20:42)
[2023-03-06] MEDS: ASCORBIC ACID 500 MG TABLET GT SCH (09:35)
[2023-03-06] MEDS: MAGNESIUM OXIDE 400 MG TABLET GT SCH (09:36)
[2023-03-06] MEDS: GABAPENTIN 300 MG CAPSULE GT SCH ×3 (09:36→20:43)
[2023-03-06] MEDS: FAMOTIDINE 20 MG TABLET GT SCH (09:36)
[2023-03-06] MEDS: FLUDROCORTISONE ACETATE 0.1 MG TABLET( FLORINEF) PO SCH (09:37)
[2023-03-06] MEDS: LACTOBACILLUS RHAMNOSUS GG 1 CAP CAPSULE GT SCH (09:37)
[2023-03-06] MEDS: CHLORHEXIDINE GLUC 0.12% 15 ML MOUTHWASH UDC MM SCH ×2 (09:38→20:43)
[2023-03-06] MEDS: VALPROIC ACID ORAL SYRUP 250 MG/5 ML UDC GT SCH ×2 (09:39→20:43)
[2023-03-06] MEDS: LevETIRAcetam 500 MG/5 ML UDC ORAL LIQUID GT SCH ×2 (09:39→20:43)
[2023-03-06] MEDS: THEOPHYLLINE ANHYDROUS 80 MG/15 ML UDC PO SCH (09:40)
[2023-03-07] VITALS (34 sets, daily range): BP systolic 90–143; PULSE 60–101; RESP 16–18; TEMP 98.2–99.5; O2SAT 98–100
[2023-03-07] MEDS: NACL 0.9% 1,000 ML IV SCH ×3 (03:41→14:16)
[2023-03-07] MEDS: IPRATROPIUM BROM 0.5 MG/2.5 ML VIAL.NEB (ATROVENT) INH SCH ×6 (04:39→23:11)
[2023-03-07] MEDS: ALBUTEROL SULFATE 0.083% 2.5 MG/3 ML VIAL.NEB INH SCH ×6 (04:39→23:10)
[2023-03-07] MEDS: ACETYLCYSTEINE 20% 4 ML VIAL (RT) INH SCH ×6 (04:40→23:11)
[2023-03-07 06:09] LABS: CALCIUM 8.1 mg/dL (8.4-11.0); CREATININE 0.48 mg/dL (0.55-1.30)
[2023-03-07] MEDS: POTASSIUM CHLORIDE 20 MEQ/PKT PACKET GT SCH ×2 (07:54→11:32)
[2023-03-07] MEDS: BACLOFEN 10 MG TABLET GT SCH ×2 (08:06→20:35)
[2023-03-07] MEDS: MAGNESIUM OXIDE 400 MG TABLET GT SCH (08:07)
[2023-03-07] MEDS: GABAPENTIN 300 MG CAPSULE GT SCH ×3 (08:07→20:35)
[2023-03-07] MEDS: LACTOBACILLUS RHAMNOSUS GG 1 CAP CAPSULE GT SCH (08:07)
[2023-03-07] MEDS: MULTIVITS,CA,MINERALS/IRON/FA 1 TABLET GT SCH (08:08)
[2023-03-07] MEDS: FLUDROCORTISONE ACETATE 0.1 MG TABLET( FLORINEF) PO SCH (08:08)
[2023-03-07] MEDS: ASCORBIC ACID 500 MG TABLET GT SCH (08:08)
[2023-03-07] MEDS: LevETIRAcetam 500 MG/5 ML UDC ORAL LIQUID GT SCH ×2 (08:09→20:35)
[2023-03-07] MEDS: FAMOTIDINE 20 MG TABLET GT SCH (08:09)
[2023-03-07] MEDS: VALPROIC ACID ORAL SYRUP 250 MG/5 ML UDC GT SCH ×2 (08:09→20:35)
[2023-03-07] MEDS: THEOPHYLLINE ANHYDROUS 80 MG/15 ML UDC PO SCH (08:10)
[2023-03-07] MEDS: CHLORHEXIDINE GLUC 0.12% 15 ML MOUTHWASH UDC MM SCH ×2 (08:10→20:35)
[2023-03-07] MEDS: ALBUMIN HUMAN 25% 50 ML IV SCH ×3 (10:02→20:35)
[2023-03-07 10:05] LABS: BASOPHILS % (AUTO) 0.4 % (0.0-2.0); EOSINOPHILS # (AUTO) 0.5 K/uL (0.0-0.4); EOSINOPHILS % (AUTO) 6.4 % (0.0-4.0); HEMATOCRIT 29.4 % (36-54); HEMOGLOBIN 9.4 g/dL (14.0-18.0); LYMPHOCYTES # (AUTO) 1.4 K/uL (1.0-5.5); LYMPHOCYTES % (AUTO) 20.1 % (20.5-51.5); MEAN CORPUSCULAR HEMOGLOBIN 26 pg (27-31); MEAN CORPUSCULAR HGB CONC 32 % (32-36); MEAN CORPUSCULAR VOLUME 82 fL (79.0-98.0); MONOCYTES # (AUTO) 0.7 K/uL (0.0-1.0); MONOCYTES % (AUTO) 10.3 % (1.7-9.3); NEUTROPHILS # (AUTO) 4.5 K/uL (1.8-7.7); NEUTROPHILS % (AUTO) 62.8 % (40.0-70.0); PLATELET COUNT (AUTO) 347 K/uL (130-430); RED BLOOD CELL COUNT(AUTO) 3.57 MIL/uL (4.2-6.2); RED CELL DISTRIBUTION WIDTH 24.6 % (9.0-15.0); WHITE BLOOD COUNT (AUTO) 7.1 K/uL (4.8-10.8)
[2023-03-07] MEDS: TOBRAMYCIN 300MG/5ML INH AMPUL.NEB INH SCH ×2 (10:21→19:55)
[2023-03-07] MEDS: NOREPINEPHRINE BITARTRATE 8 MG in NS 242 ML IV PRN (10:41)
[2023-03-07] MEDS ORDERED: FUROSEMIDE 20 MG/2 ML VIAL IVP ONE (15:15)
[2023-03-07] MEDS: 0.45% NACL 1,000 ML IV SCH (15:29)
[2023-03-08] VITALS (46 sets, daily range): BP systolic 86–152; PULSE 60–109; RESP 16–22; TEMP 98.6–98.8; O2SAT 96–100
[2023-03-08] MEDS: IPRATROPIUM BROM 0.5 MG/2.5 ML VIAL.NEB (ATROVENT) INH SCH ×6 (02:30→23:00)
[2023-03-08] MEDS: ACETYLCYSTEINE 20% 4 ML VIAL (RT) INH SCH ×6 (02:30→23:01)
[2023-03-08] MEDS: ALBUTEROL SULFATE 0.083% 2.5 MG/3 ML VIAL.NEB INH SCH ×6 (02:30→23:00)
[2023-03-08] MEDS: 0.45% NACL 1,000 ML IV SCH ×2 (05:56→21:53)
[2023-03-08 06:32] LABS: BASOPHILS % (AUTO) 0.4 % (0.0-2.0); EOSINOPHILS # (AUTO) 0.5 K/uL (0.0-0.4); EOSINOPHILS % (AUTO) 7.5 % (0.0-4.0); HEMATOCRIT 29.4 % (36-54); HEMOGLOBIN 9.6 g/dL (14.0-18.0); LYMPHOCYTES # (AUTO) 1.6 K/uL (1.0-5.5); LYMPHOCYTES % (AUTO) 22.2 % (20.5-51.5); MEAN CORPUSCULAR HEMOGLOBIN 26 pg (27-31); MEAN CORPUSCULAR HGB CONC 33 % (32-36); MEAN CORPUSCULAR VOLUME 81 fL (79.0-98.0); MONOCYTES # (AUTO) 0.8 K/uL (0.0-1.0); NEUTROPHILS # (AUTO) 4.1 K/uL (1.8-7.7); NEUTROPHILS % (AUTO) 58.9 % (40.0-70.0); PLATELET COUNT (AUTO) 340 K/uL (130-430); RED BLOOD CELL COUNT(AUTO) 3.63 MIL/uL (4.2-6.2)
[2023-03-08 07:01] LABS: ALBUMIN 2.5 g/dL (3.4-4.8); CALCIUM 8.5 mg/dL (8.4-11.0); CREATININE 0.52 mg/dL (0.55-1.30); TOTAL BILIRUBIN 0.2 mg/dL (0.0-1.0)
[2023-03-08] MEDS: TOBRAMYCIN 300MG/5ML INH AMPUL.NEB INH SCH ×2 (07:42→19:46)
[2023-03-08] MEDS: LACTOBACILLUS RHAMNOSUS GG 1 CAP CAPSULE GT SCH (08:57)
[2023-03-08] MEDS: BACLOFEN 10 MG TABLET GT SCH ×2 (08:57→21:06)
[2023-03-08] MEDS: GABAPENTIN 300 MG CAPSULE GT SCH ×3 (08:58→21:07)
[2023-03-08] MEDS: MAGNESIUM OXIDE 400 MG TABLET GT SCH (08:58)
[2023-03-08] MEDS: ASCORBIC ACID 500 MG TABLET GT SCH (08:58)
[2023-03-08] MEDS: VALPROIC ACID ORAL SYRUP 250 MG/5 ML UDC GT SCH ×2 (08:58→21:07)
[2023-03-08] MEDS: FAMOTIDINE 20 MG TABLET GT SCH (08:58)
[2023-03-08] MEDS: MULTIVITS,CA,MINERALS/IRON/FA 1 TABLET GT SCH (08:58)
[2023-03-08] MEDS: LevETIRAcetam 500 MG/5 ML UDC ORAL LIQUID GT SCH ×2 (08:58→21:08)
[2023-03-08] MEDS: FLUDROCORTISONE ACETATE 0.1 MG TABLET( FLORINEF) PO SCH (08:59)
[2023-03-08] MEDS: THEOPHYLLINE ANHYDROUS 80 MG/15 ML UDC PO SCH (08:59)
[2023-03-08] MEDS: CHLORHEXIDINE GLUC 0.12% 15 ML MOUTHWASH UDC MM SCH ×2 (08:59→21:08)
[2023-03-08] MEDS ORDERED: POTASSIUM CHLORIDE 20 MEQ TAB.PRT.SR GT ONE (13:15)
[2023-03-08] MEDS: VANCOMYCIN HCL ORAL SOLUTION 125 MG/5 ML, 150 ML PO SCH ×3 (14:28→21:09)
[2023-03-08] MEDS: POTASSIUM CHLORIDE 20 MEQ TAB.PRT.SR GT SCH (21:08)
[2023-03-09] VITALS (41 sets, daily range): BP systolic 82–119; PULSE 65–84; RESP 15–22; TEMP 97.3–98.8; O2SAT 98–100
[2023-03-09] MEDS: IPRATROPIUM BROM 0.5 MG/2.5 ML VIAL.NEB (ATROVENT) INH SCH ×6 (02:10→23:37)
[2023-03-09] MEDS: ALBUTEROL SULFATE 0.083% 2.5 MG/3 ML VIAL.NEB INH SCH ×6 (02:11→23:37)
[2023-03-09] MEDS: ACETYLCYSTEINE 20% 4 ML VIAL (RT) INH SCH ×6 (02:11→23:38)
[2023-03-09 05:51] LABS: BASOPHILS % (AUTO) 0.5 % (0.0-2.0); EOSINOPHILS # (AUTO) 0.4 K/uL (0.0-0.4); EOSINOPHILS % (AUTO) 6.8 % (0.0-4.0); HEMATOCRIT 28.3 % (36-54); HEMOGLOBIN 9.3 g/dL (14.0-18.0); LYMPHOCYTES # (AUTO) 1.4 K/uL (1.0-5.5); LYMPHOCYTES % (AUTO) 24.1 % (20.5-51.5); MEAN CORPUSCULAR HEMOGLOBIN 27 pg (27-31); MEAN CORPUSCULAR HGB CONC 33 % (32-36); MEAN CORPUSCULAR VOLUME 82 fL (79.0-98.0); MONOCYTES # (AUTO) 0.7 K/uL (0.0-1.0); MONOCYTES % (AUTO) 11.3 % (1.7-9.3); NEUTROPHILS # (AUTO) 3.4 K/uL (1.8-7.7); NEUTROPHILS % (AUTO) 57.3 % (40.0-70.0); PLATELET COUNT (AUTO) 276 K/uL (130-430); RED BLOOD CELL COUNT(AUTO) 3.46 MIL/uL (4.2-6.2); RED CELL DISTRIBUTION WIDTH 24.5 % (9.0-15.0); WHITE BLOOD COUNT (AUTO) 5.9 K/uL (4.8-10.8)
[2023-03-09 06:26] LABS: CALCIUM 8.9 mg/dL (8.4-11.0); CREATININE 0.51 mg/dL (0.55-1.30)
[2023-03-09] MEDS: TOBRAMYCIN 300MG/5ML INH AMPUL.NEB INH SCH ×2 (09:13→19:28)
[2023-03-09] MEDS: BACLOFEN 10 MG TABLET GT SCH ×2 (11:31→20:52)
[2023-03-09] MEDS: GABAPENTIN 300 MG CAPSULE GT SCH ×3 (11:33→20:51)
[2023-03-09] MEDS: FAMOTIDINE 20 MG TABLET GT SCH (11:33)
[2023-03-09] MEDS: POTASSIUM CHLORIDE 20 MEQ TAB.PRT.SR GT SCH ×2 (11:33→20:52)
[2023-03-09] MEDS: MAGNESIUM OXIDE 400 MG TABLET GT SCH (11:34)
[2023-03-09] MEDS: ASCORBIC ACID 500 MG TABLET GT SCH (11:34)
[2023-03-09] MEDS: CHLORHEXIDINE GLUC 0.12% 15 ML MOUTHWASH UDC MM SCH ×2 (11:34→20:54)
[2023-03-09] MEDS: VALPROIC ACID ORAL SYRUP 250 MG/5 ML UDC GT SCH ×2 (11:34→20:52)
[2023-03-09] MEDS: THEOPHYLLINE ANHYDROUS 80 MG/15 ML UDC PO SCH (11:35)
[2023-03-09] MEDS: LACTOBACILLUS RHAMNOSUS GG 1 CAP CAPSULE GT SCH (11:36)
[2023-03-09] MEDS: MULTIVITS,CA,MINERALS/IRON/FA 1 TABLET GT SCH (11:40)
[2023-03-09] MEDS: FLUDROCORTISONE ACETATE 0.1 MG TABLET( FLORINEF) PO SCH (11:41)
[2023-03-09] MEDS: LevETIRAcetam 500 MG/5 ML UDC ORAL LIQUID GT SCH ×2 (11:41→20:52)
[2023-03-09] MEDS: VANCOMYCIN HCL ORAL SOLUTION 125 MG/5 ML, 150 ML PO SCH ×4 (11:41→20:53)
[2023-03-09] MEDS: 0.45% NACL 1,000 ML IV SCH (15:24)
[2023-03-10] VITALS: BP_SYST 122; PULSE 67; RESP 17; O2SAT 100
[2023-03-10 01:00] VITALS: BP_SYST 110; PULSE 73; RESP 16; O2SAT 100
== END 2023-03-10 01:26 | DRG 853 ==
LOC: SED 10:35 → STU 14:03 → SIC 02-12 23:13 → STU 02-25 21:00 → SIC 02-27 10:08
PROVIDERS: ADMIT Internal Medicine; ATTEND Family Medicine
PROC: 5A1955Z Respiratory Ventilation, Greater than 96 Consecutive Hours (ICD-10-PCS; principal; 2023-02-11)
PROC: 05HY33Z Insertion of Infusion Device into Upper Vein, Percutaneous Approach (ICD-10-PCS; 2023-02-13)
PROC: B54NZZA Ultrasonography of Left Upper Extremity Veins, Guidance (ICD-10-PCS; 2023-02-13)
PROC: 0B9L8ZX Drainage of Left Lung, Via Natural or Artificial Opening Endoscopic, Diagnostic (ICD-10-PCS; 2023-02-17)
PROC: 02H63NZ Insertion of Intracardiac Pacemaker into Right Atrium, Percutaneous Approach (ICD-10-PCS; 2023-02-23)
PROC: 0B9L8ZZ Drainage of Left Lung, Via Natural or Artificial Opening Endoscopic (ICD-10-PCS; 2023-02-28)
DX: A41.9 Sepsis, unspecified organism (principal); G82.50 Quadriplegia, unspecified; J15.1 Pneumonia due to Pseudomonas; R65.21 Severe sepsis with septic shock; J96.20 Acute and chronic respiratory failure, unspecified whether with hypoxia or hypercapnia; N39.0 Urinary tract infection, site not specified; Z99.11 Dependence on respirator [ventilator] status; Z16.24 Resistance to multiple antibiotics; A04.72 Enterocolitis due to Clostridium difficile, not specified as recurrent; R13.10 Dysphagia, unspecified; E88.09 Other disorders of plasma-protein metabolism, not elsewhere classified; Z20.822 Contact with and (suspected) exposure to COVID-19; J40 Bronchitis, not specified as acute or chronic; R00.1 Bradycardia, unspecified; E66.01 Morbid (severe) obesity due to excess calories; G40.909 Epilepsy, unspecified, not intractable, without status epilepticus; G35 Multiple sclerosis; Z74.01 Bed confinement status; Z86.16 Personal history of COVID-19; Z87.01 Personal history of pneumonia (recurrent); Z88.1 Allergy status to other antibiotic agents; Z93.0 Tracheostomy status; Z95.0 Presence of cardiac pacemaker; Z93.1 Gastrostomy status; Z68.26 Body mass index [BMI] 26.0-26.9, adult
CPT/HCPCS: 31624; 36415; 71045; 76001; 80048; 80053; 80061; 80150; 80164; 81000; 82962; 83605; 83690; 83735; 83880; 83930; 83935; 84155; 84165; 84302; 84443; 84484; 85025; 85610-TC; 85730-TC; 86140; 86886; 86900; 86901; 87040; 87070-TC; 87081; 87086; 87101; 87116; 87205-TC; 87230-TC; 88108; 88305; 92610-GN; 93005; 93306; 94002; 94003; 94640; 94668; 94760; 96365; 96368; 99285; A6209; C1769; C1786; C1894; G0378; J0278; J0461; J0692; J0696; J0699; J1265; J1644; J1940; J1953; J2001; J2060; J2185; J2250; J2543; J3010; J3260; J3370; J3480; J3490; J7030; J7040; J7050; J7060; J7608; J7613; J7614; P9046; Q0162; Q9967